=== PATIENT | male | born 1960 | race Caucasian/White ===

== ENCOUNTER 2022-03-20 19:03 | Inpatient (IN) | payer OTHER ==
[~2022-03-20] VITALS: Ht 172.7 cm; Wt 83.9 kg
--- NOTE | 2022-03-20 19:07 | NUR ---
BIBA RA39 From Home"progressively getting weak last couple days/SOB/swellinG. PLACED ON BED, AAOX4, BREATHING EVEN AND UNLABORED SATURATING AT 98%, COMPLAINS OF EXCRUCIATING BACK PAIN 10/10 PS.
[2022-03-20] MEDS ORDERED: IV NS 0.9% 500 ML IV ONE (19:30)
[2022-03-20] MEDS ORDERED: ALBUTEROL FS 2.5 MG/3 ML VIAL.NEB NEB ONE (19:30)
[2022-03-20] MEDS ORDERED: IPRATROPIUM NEB FS 0.5 MG/2.5 ML AMPUL.NEB NEB ONE (19:30)
[2022-03-20] MEDS ORDERED: methylPREDNISolone SOD SUCC 125 MG/2ML VIAL IV ONE (19:30)
[2022-03-20] MEDS ORDERED: methylPREDNISolone SOD SUCC 125 MG/2ML VIAL ONE (19:33)
--- NOTE | 2022-03-20 19:35 | NUR ---
HANDMADE TILE ARTIST AT PT'S BEDSIDE
--- NOTE | 2022-03-20 19:45 | NUR ---
FACILITY SUPERVISOR AT PT'S BEDSIDE
[2022-03-20] MEDS ORDERED: IPRATROPIUM NEB FS 0.5 MG/2.5 ML AMPUL.NEB ONE (20:04)
[2022-03-20] MEDS ORDERED: ALBUTEROL FS 2.5 MG/3 ML VIAL.NEB ONE (20:04)
[2022-03-20 20:06] LABS: CALCIUM, SERUM 8.7 mg/dL (8.5-10.1); CARBON DIOXIDE 26 mmol/L (21-32); CHLORIDE 107 mmol/L (98-107); GLUCOSE 100 mg/dL (74-106); SODIUM SERUM 141 mmol/L (136-145); UREA NITROGEN, BLOOD 35 mg/dL (7-18)
[2022-03-20 20:07] LABS: BASOPHILS % (AUTO) 0.3 % (0.0-2.0); EOSINOPHILS % (AUTO) 0.3 % (0.0-6.0); HEMATOCRIT 30 % (39-51); HEMOGLOBIN 10.4 g/dL (13.5-17.5); LYMPHOCYTES # (AUTO) 1.5 K/uL (0.8-4.8); LYMPHOCYTES % (AUTO) 17.9 % (20.0-44.0); MEAN CORPUSCULAR HGB CONC 34 g/dl (31.0-36.0); MEAN CORPUSCULAR VOLUME 102 fL (80-96); MONOCYTES # (AUTO) 0.8 K/uL (0.1-1.30); MONOCYTES % (AUTO) 9.7 % (2.0-12.0); NEUTROPHILS # (AUTO) 5.9 K/uL (1.8-8.9); NEUTROPHILS % (AUTO) 71.8 % (43.0-81.0); PLATELET COUNT (AUTO) 163 K/uL (150-450); RED BLOOD CELL COUNT(AUTO) 2.97 MIL/uL (4.5-6.0); WHITE BLOOD COUNT (AUTO) 8.3 K/uL (4.3-11.0)
--- NOTE | 2022-03-20 20:15 | NUR ---
RT AT PT'S BEDSIDE FOR BREATHING TX
--- NOTE | 2022-03-20 20:16 | NUR ---
CRITICAL LAB: [facility] [address] JORDAN AWARE
[2022-03-20 20:20] LABS: ALANINE AMINOTRANSFERASE 29 U/L (12-78); ALBUMIN 2.4 g/dL (3.4-5.0); ALKALINE PHOSPHATASE 83 U/L (46-116); ASPARTATE AMINOTRANSFERASE 44 U/L (15-37); BILIRUBIN,DIRECT 0.6 mg/dL (0.0-0.2); BILIRUBIN,TOTAL 1.6 mg/dL (0.2-1.0)
--- NOTE | 2022-03-20 20:22 | NUR ---
UPDATED JUDY COSME
[2022-03-20] MEDS ORDERED: IOHEXOL-350 100 ML VIAL IV ONE (20:23)
[2022-03-20] MEDS ORDERED: IV NS 0.9% 250 ML IV ONE (20:23)
[2022-03-20] MEDS ORDERED: CT SWABBABLE VALVE TRANS SET 1 EA INFUS.SET MC ONE (20:23)
[2022-03-20] MEDS ORDERED: MORPHINE SULFATE INJ 4 MG/ML DISP.SYRIN ONE (20:24)
[2022-03-20] MEDS ORDERED: ENOXAPARIN SODIUM 80 MG/0.8 ML DISP.SYRIN SQ ONE ×2 (20:29→20:30)
[2022-03-20] MEDS ORDERED: MORPHINE SULFATE INJ 2 MG/ML DISP.SYRIN IV ONE (20:30)
--- NOTE | 2022-03-20 20:31 | NUR ---
RT neb tx discontinued midway due to pt complaint of dizziness. pt assessed and monitored. sat 99%. hr 122 but pt stated he was ok. pt stable. notified dr interiano.
--- NOTE | 2022-03-20 20:39 | NUR ---
COVID SWAB DONE AND SENT TO LAB
[2022-03-20 21:36] LABS: LYMPHOCYTES % (MANUAL) 12 % (16-48); MONOCYTES % (MANUAL) 15 % (0-11.0); NEUTROPHILS % (MANUAL) 73 (42-76)
--- NOTE | 2022-03-20 21:36 | NUR ---
SEEN BY EMETERIO GUDINO AT BEDSIDE
[2022-03-20] MEDS ORDERED: ONDANSETRON HCL/PF 4 MG/2 ML VIAL IVP PRN (22:30)
[2022-03-20] MEDS ORDERED: MAG HYDROX/AL HYDROX/SIMETH 30 ML UDC PO PRN (22:30)
[2022-03-20] MEDS ORDERED: HYDROCODONE/APAP 5/325MG TABLET PO PRN (22:30)
[2022-03-20] MEDS ORDERED: IV NS 0.9% 1,000 ML IV PRN (22:30)
[2022-03-20] MEDS ORDERED: ACETAMINOPHEN 325 MG TABLET PO PRN (22:30)
[2022-03-20] MEDS ORDERED: ENOXAPARIN SODIUM 40 MG/0.4 ML DISP.SYRIN SQ SCH (22:30)
[2022-03-20] MEDS ORDERED: Z GUARD REMEDY 4 OZ OINT TP PRN (22:30)
[2022-03-20] MEDS ORDERED: MAGNESIUM HYDROXIDE 30 ML UDC PO PRN (22:30)
--- NOTE | 2022-03-20 22:46 | NUR ---
TELE 320-1
[2022-03-20] MEDS ORDERED: ALBUTEROL FS 2.5 MG/3 ML VIAL.NEB NEB PRN (23:00)
--- NOTE | 2022-03-20 23:07 | NUR ---
REPORT GIVEN TO [facility] ROOM 320-1 FOR JOSUE
--- NOTE | 2022-03-20 23:35 | NUR ---
RN NOTES 9392 ADMITTED A 62 Y/O MALE TO THE UNIT VIA GURNEY ACCOMPANIED BY Narinder NURSE, JULITO GARCIA WITH DX OF NSTEMI. PATIENT IS ALERT AND ORIENTED X4, PT ORIENTED TO STAFF AND UNIT. V/S TAKEN AND RECORDED. PT ON ROOM AIR, TOLERATING WELL WITH SPO2 AT 96%. NOTED PT WITH DISTENDED ABDOMEN, PT DENIES PAIN OR DISCOMFORT AT THIS TIME. SKIN IS INTACT, DRY, AND WARM. PT REFUSED TO WEAR HOSPITAL GOWN BUT PHOTOGRAPHS TAKEN FOR SKIN ISSUES. IV ACCESS AT RAC AND LAC #20G INTACT AND PATENT. SAFETY MEASURES INITIATED: BED IN LOWEST AND LOCKED POSITION, SIDE RAILS UP X2, AND CALL LIGHT WITHIN REACH AND INSTRUCTED TO CALL FOR ASSISTANCE. WILL CONTINUE TO MONITOR PT THROUGHOUT THE SHIFT.
[2022-03-21] VITALS (28 sets, daily range): BP systolic 100–150; BP diastolic 34–95
--- NOTE | 2022-03-21 02:49 | NUR ---
RN NOTE RECEIVED CRITICAL LAB OF [facility] 1011, INFORMED ALEX CONCESSION CASHIER, ADVISED TO GIVE MORPHINE IV IF PATIENT IS IN PAIN OTHERWISE PT HAS LOVENOX MEDS A ROUTINE DOSE Q12H. LAST DOSE GIVEN AT 2030 AT ER. CN MADE AWARE. WILL CONT TO MONITOR.
--- NOTE | 2022-03-21 03:02 | NUR ---
RN NOTE MORPHINE IV GIVEN PRN MEDS FOR PAIN LOCATED AT THE LOWER BACK WITH 8/10 IN PAIN SCALE. WILL CONT TO MONITOR.
[2022-03-21] MEDS: MORPHINE SULFATE INJ 2 MG/ML DISP.SYRIN IV PRN ×2 (03:03→20:41)
[2022-03-21] MEDS: methylPREDNISolone SOD SUCC 40 MG/ML VIAL IV SCH ×3 (04:27→21:26)
[2022-03-21 06:19] LABS: BASOPHILS % (AUTO) 0.1 % (0.0-2.0); HEMATOCRIT 24 % (39-51); HEMOGLOBIN 8.1 g/dL (13.5-17.5); LYMPHOCYTES # (AUTO) 0.8 K/uL (0.8-4.8); MEAN CORPUSCULAR HGB CONC 34 g/dl (31.0-36.0); MEAN CORPUSCULAR VOLUME 103 fL (80-96); MONOCYTES # (AUTO) 0.2 K/uL (0.1-1.30); MONOCYTES % (AUTO) 2.7 % (2.0-12.0); NEUTROPHILS # (AUTO) 4.7 K/uL (1.8-8.9); NEUTROPHILS % (AUTO) 83.2 % (43.0-81.0); PLATELET COUNT (AUTO) 136 K/uL (150-450); RED BLOOD CELL COUNT(AUTO) 2.29 MIL/uL (4.5-6.0); WHITE BLOOD COUNT (AUTO) 5.7 K/uL (4.3-11.0)
--- NOTE | 2022-03-21 06:41 | NUR ---
MERCHANDISE EXECUTION LEADER CLOSING NOTES PATIENT SLEEPING IN BED BUT EASILY AROUSABLE TO TOUCH AND VOICE, ALERT AND ORIENTED X4, PT ON O2 VIA NC AT 2LPM TOLERATING WELL WITH SPO2 AT 98%. NO COMPLAINTS OF PAIN OR DISCOMFORT AT THIS TIME. ON TELEMONITORING CURRENTLY READING ST AT 106 BPM, IV ACCESS AT RAC AND LAC #20G INTACT AND PATENT RUNNING NS AT 75 ML/HR. ALL DUE MEDS GIVEN, KEPT DRY AND CLEAN, SAFETY MEASURES INITIATED: BED IN LOWEST AND LOCKED POSITION, SIDE RAILS UP X2, CALL LIGHT WITHIN REACH AND INSTRUCTED TO CALL FOR ASSISTANCE. WILL ENDORSE TO AM SHIFT NURSE FOR CONTINUITY OF CARE
[2022-03-21 07:15] LABS: CALCIUM, SERUM 8.3 mg/dL (8.5-10.1); MAGNESIUM 1.9 mg/dL (1.8-2.4); PHOSPHORUS 3.2 mg/dL (2.5-4.9)
--- NOTE | 2022-03-21 07:15 | NUR ---
RN NOTE CRITICAL LAB OF [facility] 1148. RELAYED TO AM SHIFT NURSE LUNA.
[2022-03-21 07:47] LABS: THYROID STIMULATING HORMONE 0.724 uIU/mL (0.358-3.74)
[2022-03-21] MEDS ORDERED: PROP10TA68 PO (08:57)
[2022-03-21] MEDS ORDERED: FURO20TA4 PO (08:57)
[2022-03-21] MEDS ORDERED: SPIR50TA5 PO (08:57)
[2022-03-21] MEDS ORDERED: PANT40TA49 PO (08:57)
[2022-03-21] MEDS ORDERED: ENOXAPARIN SODIUM 80 MG/0.8 ML DISP.SYRIN SQ SCH (09:00)
[2022-03-21] MEDS ORDERED: PANTOPRAZOLE 40 MG VIAL IV SCH (09:00)
--- NOTE | 2022-03-21 10:00 | NUR ---
RN NOTES GET PATIENT TRANSFERRED FROM MED/SURG UNIT TO THE ICU ROOM 253 62 Y/OLD MALE ON Dx OF NSTEMI, ABDOMINAL PAIN. PATIENT A/O X3, NC @3L, BEDSIDE MONITOR SHOWS HT- 116, O2-100%, , BP-118/58, WAS COMPLAINING OF DRYNESS OF MOUTH, AND MID ABDOMINAL PAIN DURING PALPATION. PATIENT NPO, IV ACCESS ON LEFT AND RIGHT AC AREA INTACT, STARTED NS@125ML/HR. EDEMA BLE,. CALL LIGHT WITHIN TO REACH. WILL FOLLOW UP.
[2022-03-21] MEDS: IV NS 0.9% 1,000 ML IV PRN ×2 (10:08→18:19)
--- NOTE | 2022-03-21 10:44 | NUR ---
PARLIAMENTARY ARCHIVIST NOTE PATIENT JOSUE. TRANSFERRED TO ICU, BED 253 @ 1000. VS 116 98.9 94% ON 3L OXYGEN AT TIME OF TRANSFER. REPORT GIVEN AT BEDSIDE TO RECEIVING NURSE. Addendum: 03/21/22 at 1053 by LUNA SHELBY RN PARLIAMENTARY ARCHIVIST NOTE PATIENT JOSUE. TRANSFERRED TO ICU, BED 253 @ 1000. VS 116 98.9 94% ON 3L OXYGEN AT TIME OF TRANSFER. REPORT GIVEN AT BEDSIDE TO RECEIVING NURSE. PATIENT SON NOTIFIED OF TRANSFER.
--- NOTE | 2022-03-21 10:53 | NUR ---
WHEEL BORER NOTE PATIENT JOSUE. TRANSFERRED TO [facility], ROOM 113-1 @ 1030. VS 107/40 70 97.4 89-90% ON 10L OXYGEN AT TIME OF TRANSFER. REPORT GIVEN AT BEDSIDE TO RECEIVING NURSE. PATIENT SON, EDGARD, ALSO MADE AWARE OF TRANSFER.
--- NOTE | 2022-03-21 11:00 | NUR ---
RN NOTES KUB OF X-RAY DONE. INSERTED STONE CATHETER, PATIENT UNABLE TO URINATE OUTPUT WAS 350 ML. BP 104/64, P-108, O2-100% WITH NC OF 3L. PATIENT STABLE AT THIS TIME. WAS COMPLAINING OF PAIN MID ABDOMEN DURING PALPATION. SEEN HOSPITALIST VIA MUD MILL TENDER ESTRADA FUNK, CANTEEN MANAGER AT BEDSIDE. CALL LIGHT WITHIN TO REACH. BED ALARM ON. WILL FOLLOW UP
--- NOTE | 2022-03-21 13:30 | NUR ---
rn notes seen patient via surgeon Dr Benoit, no new order at this time will continued monitoring.
--- NOTE | 2022-03-21 14:02 | NUR ---
rn notes patients family next to the bed. patient refused abdominal pain at this time, due medication administered.
--- NOTE | 2022-03-21 14:42 | NUR ---
rn notes patient has bloody bowel movement, delusional, calling her mother, also complaining of lower back pain, turning side to side in the often, labelling machine operator in the bed for lactic acid blood .
[2022-03-21] MEDS ORDERED: PIPERACILLIN /TAZOBACTAM 3.375 G in IV D5W 50 ML IV SCH (18:00)
--- NOTE | 2022-03-21 18:30 | NUR ---
RN NOTES PATIENT CONFUSED, NO ACUTE RESPIRATORY DISTRESS, BILATERAL WRIST RESTRAIN INTACT, PATIENT TRYING GET OUT OF BED, INFUSING NS@125 ML/HR INTACT ON RAC AREA. STONE DRAINING 800ML OF YELLOW OUTPUT. DUE MEDICATION ADMINISTERED. CALL LIGHT WITHIN TO REACH. ENDORSED ONCOMING NURSE FOLLOW JOSUE.
[2022-03-21] MEDS ORDERED: OCTREOTIDE 50 MCG/ML AMPUL IV ONE (19:00)
[2022-03-21] MEDS ORDERED: OCTREOTIDE 1,250 MCG in IV NS 0.9% 247.5 ML IV PRN (19:00)
[2022-03-21] MEDS: PANTOPRAZOLE 40 MG VIAL IV SCH (19:07)
--- NOTE | 2022-03-21 19:30 | NUR ---
RN OPENING NOTED RECEIVED PT IN BED, AWAKE. PT IS A LITTLE AGITATED AND CONFUSED, OFTEN TIMES TRYING TO GET UP FROM BED. PT CURRENTLY ON O2 VIA NC @ 3L, TOLERATING WELL. NO S/SX OF [place] RESPI DISTRESS NOTED AT THIS TIME. NO SOB, NO PAIN. O2 SAT @ >95%. ST ON TELE MONITOR. IV ACCESS NOTED ON LEFT AND RIGHT AC, BOTH #18g. LAC RUNNING NS @ 125 CC/HR. SOFT WRIST RESTRAINTS NOTED ON BILATERAL HANDS. NO CIRCULATION ISSUES SO FAR. STONE CATH IN PLACE, DRAINING YELLOW URINE BY GRAVITY. ALL SAFETY MEASURES BEING IMPLEMENTED: BED LOCKED IN LOW POSITION, BED ALARM ON. SR UP X 3, CALL LIGHT WITHIN REACH. WILL CONTINUE TO MONITOR T/O THE NIGHT.
[2022-03-21] MEDS: OCTREOTIDE 500 MCG in IV NS 0.9% 99 ML IV PRN (20:27)
--- NOTE | 2022-03-21 20:46 | NUR ---
RN NOTE PT IS RESTLESS AND COMPLAINING OF PAIN IN HIS ABDOMINAL AREA. PT IN NO ACUTE RESPI DISTRESS UPON ASSESSMENT. ADMINISTERED MORPHINE IV ORDERED. WILL CONTINUE TO MONITOR.
[2022-03-21] MEDS: PIPERACILLIN /TAZOBACTAM 3.375 G in IV D5W 100 ML IV SCH (21:25)
--- NOTE | 2022-03-21 23:30 | NUR ---
RN NOTE FECAL SAMPLE OBTAINED AT 23:15 FOR OCCULT BLOOD TEST. INFORMED LAB TO [employer].
[2022-03-22] VITALS (20 sets, daily range): BP systolic 115–147; BP diastolic 42–101
[2022-03-22] MEDS: IV NS 0.9% 1,000 ML IV PRN ×2 (02:46→11:06)
[2022-03-22] MEDS: methylPREDNISolone SOD SUCC 40 MG/ML VIAL IV SCH ×3 (04:43→21:40)
[2022-03-22] MEDS: PIPERACILLIN /TAZOBACTAM 3.375 G in IV D5W 100 ML IV SCH ×3 (04:43→21:41)
[2022-03-22 05:01] LABS: HEMATOCRIT 24 % (39-51); LYMPHOCYTES # (AUTO) 0.7 K/uL (0.8-4.8); LYMPHOCYTES % (AUTO) 6.7 % (20.0-44.0); MEAN CORPUSCULAR HGB CONC 34 g/dl (31.0-36.0); MEAN CORPUSCULAR VOLUME 105 fL (80-96); MONOCYTES # (AUTO) 0.6 K/uL (0.1-1.30); MONOCYTES % (AUTO) 5.6 % (2.0-12.0); NEUTROPHILS # (AUTO) 9.1 K/uL (1.8-8.9); NEUTROPHILS % (AUTO) 87.7 % (43.0-81.0); PLATELET COUNT (AUTO) 145 K/uL (150-450); RED BLOOD CELL COUNT(AUTO) 2.26 MIL/uL (4.5-6.0); WHITE BLOOD COUNT (AUTO) 10.4 K/uL (4.3-11.0)
[2022-03-22 05:29] LABS: ALBUMIN 2.4 g/dL (3.4-5.0); BILIRUBIN,TOTAL 1.3 mg/dL (0.2-1.0); CALCIUM, SERUM 8.2 mg/dL (8.5-10.1); MAGNESIUM 2.3 mg/dL (1.8-2.4); PHOSPHORUS 4.7 mg/dL (2.5-4.9); POTASSIUM 4.2 mmol/L (3.5-5.1); TOTAL PROTEIN, SERUM 5.5 g/dL (6.4-8.2)
[2022-03-22 05:55] LABS: OCCULT BLOOD STOOL POSITIVE (NEGATIVE)
--- NOTE | 2022-03-22 07:10 | NUR ---
OYSTER CULTIVATOR OPENING NOTE: RECEIVED PT. IN BED, AWAKE, AOX1, TO SELF ONLY. DANISH SPEAKING BUT ABLE TO UNDERSTAND AND SPEAK SIMPLE SUDANESE. NO COMPLAINTS OF PAIN/DISCOMFORT AT THIS TIME. SANITARY PLUMBER READS NSR. ON STONE CATH WITH CLEAR YELLOW URINE DRAINING VIA GRAVITY. PT. ON BILATERAL SOFT WRIST RESTRAINTS, PALPABLE PULSES AND CAP REFILL < 3 SECS NOTED ON ALL EXTREMITIES. SITTER AT BEDSIDE WELL PT. REMAINS CONFUSED AND TRYING TO GET OUT OF BED AND PULL LINES. EDEMA NOTED ON BILATERAL FOOT, NON-PITTING. IV ACCESS ON RIGHT AC #18G, PATENT AND SALINE LOCKED; LEFT AC #20G WITH NS RUNNING AT 125 ML/HR AND SANDOSTATIN AT 25MCG/HR. IV DRESSINGS C/D/I WITH NO S/S OF INFILTRATION. SAFETY MEASURES IN PLACE: BED IN LOWEST AND LOCKED POSITION, HOB ELEVATED AT 30 DEGREES, BED ALARM ON, CALL LIGHT WITHIN EASY REACH. WILL ENCOURAGE FREQUENT REPOSITIONING IN BED AT LEAST Q2H. WILL CONTINUE TO MONITOR PT. FOR ANY CHANGES.
[2022-03-22] MEDS ORDERED: LACTULOSE 10 G/15 ML UDC (PYXIS) PO PRN (08:30)
[2022-03-22] MEDS: PANTOPRAZOLE 40 MG VIAL IV SCH ×2 (09:09→17:30)
[2022-03-22] MEDS: OCTREOTIDE 500 MCG in IV NS 0.9% 99 ML IV PRN (09:09)
[2022-03-22] MEDS: LACTULOSE 10 G/15 ML UDC (PYXIS) PO SCH ×3 (09:14→21:40)
[2022-03-22] MEDS: IV D5W 1,000 ML IV PRN (12:33)
[2022-03-22] MEDS: MORPHINE SULFATE INJ 2 MG/ML DISP.SYRIN IV PRN (12:36)
--- NOTE | 2022-03-22 13:36 | NUR ---
INSTRUCTOR OF SPANISH NOTE: PT. COMPLAINED OF OF 8/10 SHARP ABDOMINAL PAIN AT 1230. MORPHINE 4MG IV GIVEN. PT. NOW VERBALIZED PAIN RELIEF OF 0/10. WILL CONTINUE TO MONITOR PT.'S PAIN.
[2022-03-22] MEDS: METOCLOPRAMIDE HCL 10 MG/2 ML VIAL IV SCH ×2 (14:45→21:40)
[2022-03-22] MEDS ORDERED: DIATR MEGLU/DIATRIZOATE SODIUM 120 ML BOTTLE (GASTROGRAPHIN) ONE (15:05)
--- NOTE | 2022-03-22 15:15 | NUR ---
INDUCTION MACHINE SETTER NOTE: PT. REFUSED TO TAKE ORAL SOLUTION FOR SMALL BOWEL FOLLOW THROUGH. HOSPITALIST NOTIFIED.
[2022-03-22] MEDS ORDERED: IV NS 0.9% 1,000 ML IV PRN (16:30)
[2022-03-22 17:01] LABS: BASOPHILS % (AUTO) 0.1 % (0.0-2.0); HEMATOCRIT 21 % (39-51); HEMOGLOBIN 7.3 g/dL (13.5-17.5); LYMPHOCYTES # (AUTO) 0.6 K/uL (0.8-4.8); MEAN CORPUSCULAR HGB CONC 34 g/dl (31.0-36.0); MEAN CORPUSCULAR VOLUME 104 fL (80-96); MONOCYTES # (AUTO) 0.4 K/uL (0.1-1.30); MONOCYTES % (AUTO) 4.7 % (2.0-12.0); NEUTROPHILS # (AUTO) 8.4 K/uL (1.8-8.9); NEUTROPHILS % (AUTO) 89.2 % (43.0-81.0); PLATELET COUNT (AUTO) 130 K/uL (150-450); RED BLOOD CELL COUNT(AUTO) 2.05 MIL/uL (4.5-6.0); WHITE BLOOD COUNT (AUTO) 9.4 K/uL (4.3-11.0)
[2022-03-22 17:22] LABS: ALBUMIN 2.2 g/dL (3.4-5.0); BILIRUBIN,TOTAL 1.1 mg/dL (0.2-1.0); CALCIUM, SERUM 7.8 mg/dL (8.5-10.1); MAGNESIUM 2.4 mg/dL (1.8-2.4); PHOSPHORUS 4.4 mg/dL (2.5-4.9); POTASSIUM 3.8 mmol/L (3.5-5.1); TOTAL PROTEIN, SERUM 5.3 g/dL (6.4-8.2)
[2022-03-22 17:34] LABS: LYMPHOCYTES % (MANUAL) 6 % (16-48); MONOCYTES % (MANUAL) 5 % (0-11.0); NEUTROPHILS % (MANUAL) 89 (42-76)
--- NOTE | 2022-03-22 18:45 | NUR ---
FOUNDER / CEOGAS FURNACE INSTALLER NOTE: TRANSFERRED PT. TO TELE ROOM 114-2 VIA HOSPITAL BED. REPORT GIVEN AT BEDSIDE TO SHAFT REPAIRERKATALINA. PT. REMAINS IN BED, AWAKE, AOX1, TO SELF ONLY. LITHUANIAN SPEAKING BUT ABLE TO UNDERSTAND AND SPEAK SIMPLE LITHUANIAN. NO COMPLAINTS OF PAIN/DISCOMFORT AT THIS TIME. GIVEN MORPHINE 4MG IV ONCE AT 1236. TOOL ROOM LATHE OPERATOR READS NSR/ST 80-106 BPM. ON STONE CATH WITH CLEAR YELLOW URINE OUTPUT OF 1900 ML THIS SHIFT. PT. ON BILATERAL SOFT WRIST RESTRAINTS, PALPABLE PULSES AND CAP REFILL < 3 SECS NOTED ON ALL EXTREMITIES. 1:1 SITTER AT BEDSIDE. IV ACCESS ON RIGHT AC #18G, PATENT AND SALINE LOCKED; LEFT AC #20G, PATENT AND SALINE LOCKED; JENNIFER MIDLINE #18G WITH D5W RUNNING AT 75 ML/HR AND SANDOSTATIN AT 25MCG/HR. IV DRESSINGS C/D/I WITH NO S/S OF INFILTRATION. SAFETY MEASURES MAINTAINED: BED IN LOWEST AND LOCKED POSITION, HOB ELEVATED AT 30 DEGREES, BED ALARM ON, CALL LIGHT WITHIN EASY REACH. ENCOURAGED FREQUENT REPOSITIONING IN BED AT LEAST Q2H. PT. MEDS, CHART, BELONGINGS HANDED OVER TO SHAFT REPAIRER AT BEDSIDE. ENDORSED CONTINUITY OF CARE.
--- NOTE | 2022-03-22 18:46 | NUR ---
DISTRIBUTOR CLEANERFRONT WORKER NOTE: PT. IS NOW ON ROOM AIR, SATURATING WELL AT 94-98%. NO S/S OF RESPIRATORY DISTRESS.
--- NOTE | 2022-03-22 18:50 | NUR ---
RN NOTE RECEIVED PATIENT FROM ICU TRANSPORTED VIA BED ACCOMPANIED BY RN ZAK AND WILBUR GILBERT. PATIENT IS AWAKE, A/O X1, VERBALLY RESPONSIVE WITH CONFUSION AND DISORIENTATION. PT ON ROOM AIR, NO SOB NOTED, BREATHING EVEN AND UNLABORED, SATURATING AT 95%. NOTED WITH IV ACCESS ON RIGHT AC #18G, SL AND LEFT UPPER MIDLINE #18G RUNNING D5W @75ML/HR AND SANDOSTATIN @5CC/HR. PLACED PATIENT ON TELE MONITOR CURRENTLY SHOWING ST, HR @ 105. VITAL SIGNS FF: 109/59, 105, 20, 98.3. DENIES ANY PAIN AT THIS TIME. SAFETY MEASURE IN PLACE. BED IN LOWEST AND LOCKED POSITION, SIDE RAILS UP X3, CALL LIGHT PLACED WITHIN EASY REACH. WILL ENDORSE TO NEXT SHIFT FOR JOSUE.
--- NOTE | 2022-03-22 20:22 | NUR ---
INSPECTOR FINAL ASSEMBLY ELECTRICAL OPENING NOTE PATIENT AWAKE IN BED, ALERT/ORIENTED X 1, PT CONFUSED. PT STABLE ON RA, NO S/S OF DISTRESS OR SOB NOTED, BREATHING EVEN AND UNLABORED. PATIENT ON EXTERNAL ASSOCIATE PROFESSOR OF ARCHAEOLOGY READING SINUS TACH, HR: 108. IV ACCESS ON JENNIFER MIDLINE & RAC #18G BOTH INTACT AND INFUSING D5W @ 75 ML/HR AND SANDOSTATIN @ 5 ML/HR (25 MCG/HR). PATIENT WITH BILATERAL SOFT WRIST RESTRAINTS ON, RELEASED AND PATIENT REPOSITIONED, FLUIDS PROVIDED AND RESTRAINTS PLACED BACK ON. STONE CATHETER NOTED DRAINING YELLOW URINE BY GRAVITY. SAFETY MEASURES IN PLACE: CALL LIGHT WITHIN REACH, SIDE RAILS UP X 3, BED LOCKED IN LOWEST POSITION, BED ALARM ON. WILL CONTINUE TO MONITOR PATIENT
[2022-03-22 20:58] LABS: BILIRUBIN,URINE NEGATIVE (NEGATIVE); COLOR,URINE YELLOW (YELLOW); LEUKOCYTE ESTERASE ,URINE NEGATIVE (NEGATIVE); NITRITE, URINE NEGATIVE (NEGATIVE); PROTEIN,URINE NEGATIVE (NEGATIVE); UGLUCOSE NEGATIVE (NEGATIVE)
[2022-03-22 21:05] LABS: BACTERIA,URINE None seen /HPF (None Seen); RBC,URINE 51-80 /HPF (0-2); SQUAMOUS EPITHELIAL CELL,UR 0-2 /HPF (None Seen); WBC,URINE 0-2 /HPF (0-3)
[2022-03-22 21:06] LABS: URINE AMORPHOUS URATE Moderate /HPF (None Seen)
--- NOTE | 2022-03-22 22:29 | NUR ---
FRONT WINDOW CASHIER NOTE PATIENT STATED HE CAN'T BREATHE, SPO2: 91-92%. PLACED PATIENT ON 2 LPM OF OXYGEN VIA NASAL CANNULA, WILL CONTINUE TO MONITOR
[2022-03-23] VITALS: BP 144/86
[2022-03-23] MEDS: METOCLOPRAMIDE HCL 10 MG/2 ML VIAL IV SCH ×4 (03:38→20:52)
[2022-03-23] MEDS: LACTULOSE 10 G/15 ML UDC (PYXIS) PO SCH ×4 (03:39→20:52)
[2022-03-23 04:00] VITALS: BP 138/75
[2022-03-23] MEDS: PIPERACILLIN /TAZOBACTAM 3.375 G in IV D5W 100 ML IV SCH ×3 (05:07→20:53)
[2022-03-23] MEDS: methylPREDNISolone SOD SUCC 40 MG/ML VIAL IV SCH ×3 (05:07→20:52)
[2022-03-23] MEDS: IV D5W 1,000 ML IV PRN (05:08)
[2022-03-23] MEDS: OCTREOTIDE 500 MCG in IV NS 0.9% 99 ML IV PRN (05:08)
[2022-03-23 06:03] LABS: HEMATOCRIT 22 % (39-51); HEMOGLOBIN 7.4 g/dL (13.5-17.5); LYMPHOCYTES # (AUTO) 0.7 K/uL (0.8-4.8); LYMPHOCYTES % (AUTO) 7.5 % (20.0-44.0); MEAN CORPUSCULAR HGB CONC 34 g/dl (31.0-36.0); MEAN CORPUSCULAR VOLUME 104 fL (80-96); MONOCYTES # (AUTO) 0.6 K/uL (0.1-1.30); MONOCYTES % (AUTO) 5.8 % (2.0-12.0); NEUTROPHILS # (AUTO) 8.4 K/uL (1.8-8.9); NEUTROPHILS % (AUTO) 86.7 % (43.0-81.0); PLATELET COUNT (AUTO) 127 K/uL (150-450); RED BLOOD CELL COUNT(AUTO) 2.08 MIL/uL (4.5-6.0); WHITE BLOOD COUNT (AUTO) 9.7 K/uL (4.3-11.0)
--- NOTE | 2022-03-23 06:40 | NUR ---
URBAN GARDENING SPECIALIST CLOSING NOTE PATIENT SLEEPING IN BED, ALERT/ORIENTED X 1-2. PT STABLE ON 2 LPM OF O2 VIA NASAL CANNULA, NO S/S OF DISTRESS OR SOB NOTED, BREATHING EVEN AND UNLABORED. PATIENT ON EXTERNAL VISION CARE ASSOCIATE READING SINUS RHYTHM, HR: 99. IV ACCESS ON JENNIFER MIDLINE & RAC #18G BOTH INTACT AND INFUSING ZOSYN @ 25 ML/HR AND SANDOSTATIN @ 5 ML/HR (25 MCG/HR). PATIENT WITH BILATERAL SOFT WRIST RESTRAINTS ON AND SITTER AT BEDSIDE. STONE CATHETER IN PLACE WITH 900 ML OUTPUT, NO BM THIS SHIFT. MEDICATIONS GIVEN ORDERED, PT NEEDS MET THROUGHOUT SHIFT. SAFETY MEASURES IN PLACE: CALL LIGHT WITHIN REACH, SIDE RAILS UP X 3, BED LOCKED IN LOWEST POSITION, BED ALARM ON. WILL ENDORSE TO DAYSHIFT NURSE FOR CONTINUITY OF CARE
[2022-03-23 08:00] VITALS: BP 138/75
--- NOTE | 2022-03-23 08:02 | NUR ---
RN OPENING NOTE PATIENT RECEIVED IN BED, AO X 1-2, BHUTANESE SPEAKING, ABLE TO RESPONDS ALL STIMULI. IN NO ACUTE DISTRESS NOTED. RESPIRATORY EVEN AND UNLABORED ON OXYGEN AT 2Ls VIA NC. SKIN IS WARM TO TOUCH, KEEP CLEAN/DRY. KEPT ELEVATED HOB FOR ENSURE AIRWAY AND ASPIRATION PRECAUTION, ALSO LOWEST POSITION OF THE BED, S/R UP X 3, BED ALARM IS ON AT ALL THE TIMES. ALL SAFETY PRECAUTION APPLIED. CALL LIGHT WITHIN REACH, WILL CONTINUE TO MONITOR.
[2022-03-23 08:21] LABS: ALBUMIN 2.4 g/dL (3.4-5.0); BILIRUBIN,TOTAL 1.2 mg/dL (0.2-1.0); CALCIUM, SERUM 7.8 mg/dL (8.5-10.1); MAGNESIUM 2.5 mg/dL (1.8-2.4); TOTAL PROTEIN, SERUM 5.3 g/dL (6.4-8.2)
[2022-03-23 08:55] LABS: PHOSPHORUS 4.4 mg/dL (2.5-4.9)
[2022-03-23] MEDS: PANTOPRAZOLE 40 MG VIAL IV SCH ×2 (09:33→17:19)
[2022-03-23 10:36] LABS: BILIRUBIN,DIRECT 0.6 mg/dL (0.0-0.2)
[2022-03-23 12:00] VITALS: BP 119/74
[2022-03-23 16:00] VITALS: BP 125/64
--- NOTE | 2022-03-23 18:00 | NUR ---
RN CLOSING NOTE PATIENT IN BED RESTING. IN NO ACUTE DISTRESS NOTED. RESPIRATORY EVEN AND UNLABORED ON OXYGEN AT 1L VIA NC. SKIN IS WARM TO TOUCH, KEEP CLEAN/DRY. KEPT ELEVATED HOB FOR ENSURE AIRWAY AND ASPIRATION PRECAUTION. BED IN LOWEST POSITION AND LOCKED. BED ALARM IS ON AT ALL THE TIMES. ALL SAFETY MEASURED IN PLACED. CALL LIGHT WITHIN REACH, WILL ENDORSED TO NEXT SHIFT
[2022-03-23 20:00] VITALS: BP 143/70
[2022-03-24] VITALS (13 sets, daily range): BP systolic 98–144; BP diastolic 54–83
[2022-03-24] MEDS: OCTREOTIDE 500 MCG in IV NS 0.9% 99 ML IV PRN ×2 (01:46→19:20)
[2022-03-24] MEDS: METOCLOPRAMIDE HCL 10 MG/2 ML VIAL IV SCH ×4 (02:53→20:26)
[2022-03-24] MEDS: LACTULOSE 10 G/15 ML UDC (PYXIS) PO SCH ×4 (02:53→20:31)
[2022-03-24] MEDS: PIPERACILLIN /TAZOBACTAM 3.375 G in IV D5W 100 ML IV SCH ×3 (04:49→20:26)
[2022-03-24] MEDS: methylPREDNISolone SOD SUCC 40 MG/ML VIAL IV SCH ×3 (04:49→20:26)
[2022-03-24 06:23] LABS: HEMOGLOBIN 7.1 g/dL (13.5-17.5); LYMPHOCYTES # (AUTO) 0.6 K/uL (0.8-4.8); LYMPHOCYTES % (AUTO) 9.4 % (20.0-44.0); MEAN CORPUSCULAR HGB CONC 35 g/dl (31.0-36.0); MEAN CORPUSCULAR VOLUME 103 fL (80-96); MONOCYTES # (AUTO) 0.6 K/uL (0.1-1.30); MONOCYTES % (AUTO) 9.3 % (2.0-12.0); NEUTROPHILS # (AUTO) 4.8 K/uL (1.8-8.9); NEUTROPHILS % (AUTO) 81.3 % (43.0-81.0); PLATELET COUNT (AUTO) 107 K/uL (150-450); WHITE BLOOD COUNT (AUTO) 5.9 K/uL (4.3-11.0)
[2022-03-24 06:47] LABS: SERUM AMMONIA 18 umol/L (11-32)
[2022-03-24 07:11] LABS: IRON, SERUM 19 ug/dl (50-175); TOTAL IRON BINDING CAPACITY 258 ug/dl (250-450)
[2022-03-24 07:13] LABS: ALBUMIN 2.2 g/dL (3.4-5.0); BILIRUBIN,DIRECT 0.6 mg/dL (0.0-0.2); BILIRUBIN,TOTAL 1.4 mg/dL (0.2-1.0); CALCIUM, SERUM 7.5 mg/dL (8.5-10.1); CREATININE 0.9 mg/dL (0.6-1.3); MAGNESIUM 2.7 mg/dL (1.8-2.4); PHOSPHORUS 3.6 mg/dL (2.5-4.9); POTASSIUM 4.2 mmol/L (3.5-5.1); TOTAL PROTEIN, SERUM 5.2 g/dL (6.4-8.2)
[2022-03-24 07:20] LABS: FERRITIN 45 ng/mL (8-388)
--- NOTE | 2022-03-24 07:23 | NUR ---
RN CLOSING NOTE PATIENT IN BED, ASLEEP AT THIS TIME, AT 2LPM VIA NC, NO SOB/NO SIGNS OF ACUTE DISTRESS NOTED, NSR IN TELE MONITOR, CONT ON IVF AND SANDOSTATIN ORDERED, CONT ON ANTIBIOTIC, NPO SINCE MIDNIGHT FOR EGD TODAY, ONE BOWEL MOVEMENT STILL TARRY STOOL, BILATERAL RESTRAINS RELEASED AND PATIENT BEHAVING AT THIS TIME, OTHERWISE NO SIGNIFICANT CHANGE IN CONDITION, ALL SAFETY MEASURE MAINTAINED, BED LOCKED AND LOWEST POSITION, SIDE RAILS UP X2, CALL LIGHT W/I REACH, ENDORSED TO KEYUR SKINNER FOR CONTINUITY OF CARE..
--- NOTE | 2022-03-24 07:29 | NUR ---
RN OPENING NOTE PATIENT RECEIVED IN BED,ALERT AND VERBALLY RESPONSIVE, SYRIAC SPEAKING, ABLE TO RESPONDS ALL STIMULI. IN NO ACUTE DISTRESS NOTED. RESPIRATORY EVEN AND UNLABORED ON OXYGEN AT 2Ls VIA NC, NO FACIAL GRIMACING NOTED. JENNIFER MIDLINE AND RIGHT AC PIV NOTED INTACT WITH MEDICATION AND IV FLUIDS RUNNING. ON TELE MONITORING WITH SR HR 92. SKIN IS WARM TO TOUCH, KEEP CLEAN/DRY. KEPT ELEVATED HOB FOR ENSURE AIRWAY AND ASPIRATION PRECAUTION, ALSO LOWEST POSITION OF THE BED, S/R UP X 3, BED ALARM IS ON AT ALL THE TIMES. ALL SAFETY PRECAUTION APPLIED. CALL LIGHT WITHIN REACH. WILL CONTINUE PLAN OF CARE.
[2022-03-24 07:43] LABS: RED BLOOD CELL COUNT(AUTO) 1.97 MIL/uL (4.5-6.0)
[2022-03-24 07:46] LABS: HEMATOCRIT 20 % (39-51)
--- NOTE | 2022-03-24 07:52 | NUR ---
RN NOTED RECEIVED CALL FROM LAB NOTE HEMOGLOBIN=7.1 HEMATOCRIT 2O, NO ACTIVE BLEEDING NOTED, PATIENT ALERT AND RESPONSIVE, WILL CONTINUE PLAN OF CARE.
[2022-03-24] MEDS: PANTOPRAZOLE 40 MG VIAL IV SCH ×2 (09:27→16:25)
--- NOTE | 2022-03-24 10:08 | NUR ---
RN NOTES CALLED SON SHASHANK TO GET A CONSENT, SON GIVE CONSENT. HELD LACTULOSE DUE TO PATIENT NPO DUE TO SCHEDULED SURGERY. NOTED PATIENT WITH ORDER BLOOD TRANSFUSION BUT PATIENT WILL BE GOING TO THE PROCEDURE. WILL CONTINUE PLAN OF CARE.
--- NOTE | 2022-03-24 10:45 | NUR ---
RN NOTES PATIENT IS OUT FOR SURGERY PROCEDURE.
[2022-03-24] MEDS ORDERED: PHYTONADIONE INJ 10 MG/1 ML AMPUL ONE (11:33)
[2022-03-24] MEDS ORDERED: ANESTHESIA TRAY IN PYXIS 1 EA TRAY MC ONE (11:34)
[2022-03-24] MEDS: SUCRALFATE 1 G/10 ML UDC PO SCH ×3 (12:00→23:14)
--- NOTE | 2022-03-24 12:21 | NUR ---
RN NOTES PATIENT BACK FROM EGD WITH BIOPSY, RECEIVED REPORT FROM PACU NURSE, NO SOB NOTED, RESPIRATION EVEN AND UNLABORED. WILL CONTINUE PLAN OF CARE.
--- NOTE | 2022-03-24 13:53 | NUR ---
RN BLOOD TRANSFUSION NOTES HANG BLOOD ORDERED, WITNESS BY ERMIAS VILA, INITIAL V/S 97.8 HR 75 RR 20 % @1LPM 02 BP 111/63, NO BLOOD TRANSFUSION REACTION NOTED. RECHECK BP 15 MINUTES AFTER THE BLOOD TRANSFUSION T 97.7 BP 106/54 RR 19 HR 67 02 SAT 95% @1LPM 02. INFORMED MD THAT PATIENT ON BLOOD TRANSFUSION, AND SANDOSTATIN RUNNING AT THE OTHER LINE JORDAN, ASKED IF WE CAN HOLD SANDOSTATIN SO I CAN HANG THE ZOSYN IV ATB, GOOD HERNANDEZ SAID OK. WILL HOLD SANDOSTATIN AND WILL HANG THE ZOSYN. WILL CONTINUE PLAN OF CARE FOR THE PATIENT.
--- NOTE | 2022-03-24 16:22 | NUR ---
RN NOTES BLOOD TRANSFUSION DONE, VS T 97.4 HR 88 RR 20 BP 111/66 02 SAT 93% @1LPM 02 VIA NC, NO REACTION NOTED. NO SOB NOTED, RESPIRATION EVEN AND UNLABORED, DENIES ANY PAIN, WILL CONTINUE PLAN OF CARE.
--- NOTE | 2022-03-24 16:58 | NUR ---
RN NOTES NOTED PATIENT COOPERATIVE, ALERT AND VERBALLY RESPONSIVE, NOT PULLING OUT IV LINES OR NOT TRYING TO GET UP, D/C RESTRAINT ORDER, WILL CONTINUE PLAN OF CARE.
[2022-03-24] MEDS: SOD FERRIC GLUC 125 MG in IV NS 0.9% 100 ML IV SCH (17:22)
[2022-03-24] MEDS: IV D5W 1,000 ML IV PRN (19:08)
--- NOTE | 2022-03-24 19:47 | NUR ---
RN CLOSING NOTE PATIENT IN BED, AWAKE AND ALERT, AT 1LPM VIA NC, NO SOB/NO SIGNS OF ACUTE DISTRESS NOTED, ON TELE MONITOR WITH READING OF SR, CONT ON D5W @75ML/HR, RESTART SANDOSTATIN ORDERED, JENNIFER MIDLINE AND RIGHT AC NOTED PATENT AND INTACT, FLUSHES WELL. NO EPISODE OF GETTING UP OR REMOVING IV LINES. F/C PATENT AND INTACT DRAINING 600ML CLEAR YELLOW URINE. ALL SAFETY MEASURE MAINTAINED, BED LOCKED AND LOWEST POSITION, SIDE RAILS UP X2, CALL LIGHT W/I REACH, ENDORSED TO NIGHT NURSE FOR JOSUE.
--- NOTE | 2022-03-24 20:08 | NUR ---
DRY CANS BACK TENDER OPENING NOTE PT RECEIVED IN BED, AWAKE, A&O X2, CALM, COOPERATIVE. PT ON 1L NC WITH CURRENT O2SAT OF 96%; NO S/S OF RESP DISTRESS, NO SOB OR COUGH, NON-LABORED AND EQUAL BREATHING. PT ATTACHED TO EXTERNAL MONITOR, SR WITH HR OF 85. STONE INTACT AND PATENT, DRAINING CLEAR AND YELLOW URINE. JENNIFER MIDLINE AND RAC 18G INTACT AND PATENT, FLUSHES EASILY WITH NO RESISTANCE D5W AT 75 ML/HR AND SANDOSTATIN AT 5 ML/HR. BED IN LOWEST POSITION, CALL LIGHT WITHIN REACH, SIDE RAILS UP X3. WILL CONTINUE TO MONITOR THROUGHOUT THE NIGHT.
[2022-03-24] MEDS: TEMAZEPAM 15 MG CAPSULE PO PRN (20:27)
--- NOTE | 2022-03-24 20:28 | NUR ---
RN NOTE PT REQUESTS FOR SLEEPING PILL. PT ADMINISTERED RESTORIL 30 MG. BP 137/74, HR 85. WILL MONITOR FOR EFFECTIVENESS.
[2022-03-24 21:19] LABS: BASOPHILS % (AUTO) 0.1 % (0.0-2.0); HEMATOCRIT 25 % (39-51); HEMOGLOBIN 8.7 g/dL (13.5-17.5); LYMPHOCYTES # (AUTO) 0.4 K/uL (0.8-4.8); LYMPHOCYTES % (AUTO) 6.2 % (20.0-44.0); MEAN CORPUSCULAR HGB CONC 34 g/dl (31.0-36.0); MEAN CORPUSCULAR VOLUME 98 fL (80-96); MONOCYTES # (AUTO) 0.6 K/uL (0.1-1.30); MONOCYTES % (AUTO) 9.5 % (2.0-12.0); NEUTROPHILS % (AUTO) 84.2 % (43.0-81.0); PLATELET COUNT (AUTO) 114 K/uL (150-450); RED BLOOD CELL COUNT(AUTO) 2.59 MIL/uL (4.5-6.0); WHITE BLOOD COUNT (AUTO) 5.9 K/uL (4.3-11.0)
[2022-03-24 21:50] LABS: MAGNESIUM 2.6 mg/dL (1.8-2.4); PHOSPHORUS 3.1 mg/dL (2.5-4.9)
[2022-03-25] VITALS: BP 159/87
[2022-03-25 04:00] VITALS: BP 138/62
[2022-03-25] MEDS: methylPREDNISolone SOD SUCC 40 MG/ML VIAL IV SCH ×3 (04:09→20:41)
[2022-03-25] MEDS: METOCLOPRAMIDE HCL 10 MG/2 ML VIAL IV SCH ×4 (04:09→20:41)
[2022-03-25] MEDS: LACTULOSE 10 G/15 ML UDC (PYXIS) PO SCH ×4 (04:10→20:41)
[2022-03-25] MEDS: PIPERACILLIN /TAZOBACTAM 3.375 G in IV D5W 100 ML IV SCH ×3 (04:11→20:41)
[2022-03-25] MEDS: SUCRALFATE 1 G/10 ML UDC PO SCH (06:12)
--- NOTE | 2022-03-25 07:32 | NUR ---
COAT CHECKER NOTE PATIENT IN BED , RESTING COMFORTABLY AT THIS TIME, ON 2L NC NO SOB NOTED AT THIS TIME, ON TELE MONITOR SR HR 60, RT AC HL AND LT UPPER ARM MID LINE IN PLACE , ON IVF ORDERED, BED IN LOWEST AND LOCKED POSITION CALL LIGHT WITHIN REACH, SAFETY MEASURE PROVIDED , WILL CONT TO MONITOR CLOSELY
--- NOTE | 2022-03-25 07:34 | NUR ---
CONVENTIONAL MORTGAGE UNDERWRITER CLOSING NOTE PT REMAINS IN BED, ASLEEP BUT EASILY AROUSABLE, A&O X2, CALM, COOPERATIVE. PT ON 2L NC WITH O2SAT RANGING FROM 96%-97%; NO S/S OF RESP DISTRESS, NO SOB OR COUGH, NON-LABORED AND EQUAL BREATHING. PT ATTACHED TO EXTERNAL MONITOR, SR. STONE INTACT AND PATENT, DRAINING CLEAR AND DARK YELLOW URINE. JENNIFER MIDLINE AND RAC 18G INTACT AND PATENT, FLUSHES EASILY WITH NO RESISTANCE D5W AT 75 ML/HR AND ZOSYN. ALL DUE MEDS ADMINISTERED DURING THE NIGHT. BED IN LOWEST POSITION, CALL LIGHT WITHIN REACH, SIDE RAILS UP X3. WILL ENDORSE TO DAYSHIFT NURSE TO CONTINUE CARE.
[2022-03-25 07:56] LABS: HEMATOCRIT 26 % (39-51); HEMOGLOBIN 8.8 g/dL (13.5-17.5); LYMPHOCYTES # (AUTO) 0.5 K/uL (0.8-4.8); LYMPHOCYTES % (AUTO) 7.4 % (20.0-44.0); MEAN CORPUSCULAR HGB CONC 34 g/dl (31.0-36.0); MEAN CORPUSCULAR VOLUME 99 fL (80-96); MONOCYTES # (AUTO) 0.7 K/uL (0.1-1.30); MONOCYTES % (AUTO) 9.9 % (2.0-12.0); NEUTROPHILS # (AUTO) 5.8 K/uL (1.8-8.9); NEUTROPHILS % (AUTO) 82.7 % (43.0-81.0); PLATELET COUNT (AUTO) 112 K/uL (150-450)
[2022-03-25 08:00] VITALS: BP 131/66
[2022-03-25] MEDS: PANTOPRAZOLE 40 MG VIAL IV SCH ×2 (08:06→16:06)
[2022-03-25 08:08] LABS: CALCIUM, SERUM 7.7 mg/dL (8.5-10.1); CREATININE 0.9 mg/dL (0.6-1.3); MAGNESIUM 2.6 mg/dL (1.8-2.4); PHOSPHORUS 3.6 mg/dL (2.5-4.9); POTASSIUM 4.1 mmol/L (3.5-5.1)
--- NOTE | 2022-03-25 09:00 | NUR ---
telecommunications specialist note u dr mack at bedside ok to get patient up . having breakfast sitting at edge of bed
[2022-03-25] MEDS: IV D5W 1,000 ML IV PRN (10:50)
[2022-03-25] MEDS: SUCRALFATE 1 G TABLET PO SCH ×2 (11:14→17:22)
[2022-03-25 12:00] VITALS: BP 119/62
--- NOTE | 2022-03-25 12:18 | NUR ---
teletype operator note Patient was put out of his bed and was sitting in the chair, with 2L O2 via nasal cannula.Having lunch on liquid diet by himself without distress.
--- NOTE | 2022-03-25 12:53 | NUR ---
delinquency prevention social worker note Patient was up on a chair, seen by Dr. Wilhelm. Complained hard to swallow. ordered swallow evaluation, aware that bilateral feet pitting edema 1+, would continue IVF.
[2022-03-25] MEDS: SOD FERRIC GLUC 125 MG in IV NS 0.9% 100 ML IV SCH (14:36)
--- NOTE | 2022-03-25 15:29 | NUR ---
telecommunications field engineer note resting comfortably in bed , not in distress, on 2l nc no sob note at this time, call light within reach
[2022-03-25 16:00] VITALS: BP 143/78
--- NOTE | 2022-03-25 18:29 | NUR ---
degreaser operator notes Patient was in bed resting comfortably. Refused dinner at the moment. Encourage intake. No other discomfort reported. Patient continue IVF. SpO2 97% with 2L oxygen. Bed in lowest position. Safety measures implemented and will continue to monitor.
[2022-03-25 20:00] VITALS: BP 128/56
[2022-03-25] MEDS: TEMAZEPAM 15 MG CAPSULE PO PRN (20:50)
[2022-03-26] VITALS: BP 125/55
[2022-03-26] MEDS: SUCRALFATE 1 G TABLET PO SCH ×5 (00:18→23:24)
[2022-03-26] MEDS: LACTULOSE 10 G/15 ML UDC (PYXIS) PO SCH ×4 (03:07→20:30)
[2022-03-26] MEDS: METOCLOPRAMIDE HCL 10 MG/2 ML VIAL IV SCH ×4 (03:07→20:21)
[2022-03-26 04:00] VITALS: BP 136/60
[2022-03-26] MEDS: PIPERACILLIN /TAZOBACTAM 3.375 G in IV D5W 100 ML IV SCH ×3 (05:18→20:23)
[2022-03-26] MEDS: methylPREDNISolone SOD SUCC 40 MG/ML VIAL IV SCH (05:19)
[2022-03-26] MEDS: IV D5W 1,000 ML IV PRN ×2 (05:45→20:41)
--- NOTE | 2022-03-26 06:43 | NUR ---
END OF SHIFT, VS STABLE DURING THE NIGHT, NO S/S OF ANY SOB/ACUTE DISTRESS, NO SIGNIFICANT CHANGE IN CONDITION DURING THE NIGHT, BED IN LOWEST POSITION, CALL LIGHT WITHIN REACH, SIDE RAILS UP X3, WILL ENDORSE CONTINUITY OF CARE TO ONCOMING NURSE.
--- NOTE | 2022-03-26 07:30 | NUR ---
RN Opening Note Patient AOx4 able to express his own concern. Patient was sleeping but easily aroused. Patient shows no signs of discomfort or distress states he is doing "soso". Introduced myself to patient and discussed plan of care, patient verbalized understanding. All safety precautions taken, call light and table within reach, bed at lowest position.
[2022-03-26 08:00] VITALS: BP_SYST 129; BP_SYST 134; BP_DIAS 64; BP_DIAS 67
[2022-03-26] MEDS: PANTOPRAZOLE 40 MG/PACK PACK PO SCH ×2 (09:14→17:13)
[2022-03-26 12:00] VITALS: BP 103/57
[2022-03-26] MEDS: SOD FERRIC GLUC 125 MG in IV NS 0.9% 100 ML IV SCH (15:06)
--- NOTE | 2022-03-26 18:31 | NUR ---
RN Closing Report. Patient AOx4 able to express his own concerns. Patient states he is doing better now that he has been moved to a new room with less noise. Patients is at bedside providing basic needs. All safety precautions taken throughout shift, medications administered as prescribed and care as needed. Call light and table within reach, bed at lowest position.
--- NOTE | 2022-03-26 19:30 | NUR ---
PT AWAKE, RESTING COMFORTABLY IN BED. A/0X4. ABLE TO MAKE NEEDS KNOWN. NOT IN DISTRESS AND NO COMPLAINTS OF PAIN. HAS NC AT 2LPM, NO SOB. FC IN PLACE. JENNIFER ML IN PLACE INFUSING D5W AT 75ML/HR. SAFETY MEASURES IN PLACE. BED LOCKED IN LOWEST POSITION, SIDE RAILS UP X2, HOB SLIGHTLY ELEVATED, BED ALARM ON, CALL LIGHT WITHIN REACH. WILL CONTINUE PLAN OF CARE.
[2022-03-26] MEDS: TEMAZEPAM 15 MG CAPSULE PO PRN (20:22)
[2022-03-27] MEDS: METOCLOPRAMIDE HCL 10 MG/2 ML VIAL IV SCH ×3 (02:24→15:26)
[2022-03-27] MEDS: LACTULOSE 10 G/15 ML UDC (PYXIS) PO SCH ×3 (02:30→15:27)
[2022-03-27] MEDS: PIPERACILLIN /TAZOBACTAM 3.375 G in IV D5W 100 ML IV SCH ×2 (04:04→12:05)
[2022-03-27] MEDS: SUCRALFATE 1 G TABLET PO SCH ×2 (05:17→12:04)
--- NOTE | 2022-03-27 07:00 | NUR ---
RN NOTE RECEIVED PATIENT IN BED RESTING ALERT ORIENTED X3-4 VERBALLY RESPONSIVE,SLOVENIAN SPEAKING ON 2L OXYGEN VIA NASAL CANNULA,O2:94% IV SITE IS ON LEFT UPPER ARM INTACT PATENT ON D5W IV HYDRATION 75CC/HR,STONE CATH IN PLACE URINE DRAINING CLEAR BY GRAVITY,SAFETY MEASURE IMPLEMENT BED IN LOW POSITON AND LOCKED,CALL LIGHT WITHIN REACH,HEAD OF THE BED ELEVATED ,CONTINUE TO MONITOR
--- NOTE | 2022-03-27 07:04 | NUR ---
PT ASLEEP, RESTING COMFORTABLY IN BED. A/0X4. ABLE TO MAKE NEEDS KNOWN, YORUBA SPEAKING, SPEAKS LITTLE [facility]CI[facility]. NOT IN DISTRESS AND NO COMPLAINTS OF PAIN. HAS NC AT 2LPM, NO SOB. FC IN PLACE DRAINIG YELLOW COLORED URINE. JENNIFER ML IN PLACE INFUSING D5W AT 75ML/HR. SAFETY MEASURES MAINTAINED. BED LOCKED IN LOWEST POSITION, SIDE RAILS UP X2, HOB SLIGHTLY ELEVATED, BED ALARM ON, CALL LIGHT WITHIN REACH. WILL ENDORSE TO NEXT NURSE ON DUTY FOR CONTINUITY OF CARE
[2022-03-27] MEDS: PANTOPRAZOLE 40 MG/PACK PACK PO SCH (08:30)
[2022-03-27] MEDS ORDERED: SUCR1TAB31 PO (10:43)
--- NOTE | 2022-03-27 11:28 | NUR ---
RN NOTE PER DR PATTERSON ORDER REMOVED STONE CATH WITH 300CC OUT PUT,CONTINUE TO MONITOR.
--- NOTE | 2022-03-27 12:10 | NUR ---
RN NOTE REMOVED NASAL CANNULA FOR 10MINS PATIENT ON ROOM AIR O2:96%.CONTINUE TO MONITOR.
[2022-03-27] MEDS: SOD FERRIC GLUC 125 MG in IV NS 0.9% 100 ML IV SCH (14:44)
--- NOTE | 2022-03-27 16:30 | NUR ---
RN NOTE PATIENT DISCHARGED HOME IN STABLE CONDITION,REMOVED STONE CATH HE URINATED WITHOUT DIFFICULTY,TWO TIMES,HE SIGNED ALL DISCHARGE PAPERS AND BELONGINGS,HE IS ALERT ORIENTED X4 VERBALLY RESPONSIVE ON ROOM AIR O2:95% REMOVED MIDLINE NO BLEEDING NOTED,HE LEFT HOSPITAL WITH HIS SON BY PRIVATE CAR.VS: BP132/76 HR 89 O2:95% ON ROOM AIR T:98
== END 2022-03-27 16:51 | disposition home or self-care (01) | DRG 241 ==
LOC: ER 19:08 → TELE 23:09 → ICU 03-21 09:45 → TELE1 03-22 18:23 → MEDSG1 03-26 09:28
PROVIDERS: ADMIT Nurse Practitioner Acute Care; ATTEND Internal Medicine
PROC: 05HA33Z Insertion of Infusion Device into Left Brachial Vein, Percutaneous Approach (ICD-10-PCS; 2022-03-22)
PROC: 0DB98ZX Excision of Duodenum, Via Natural or Artificial Opening Endoscopic, Diagnostic (ICD-10-PCS; principal; 2022-03-24)
PROC: 0DB48ZX Excision of Esophagogastric Junction, Via Natural or Artificial Opening Endoscopic, Diagnostic (ICD-10-PCS; 2022-03-24)
PROC: 30233N1 Transfusion of Nonautologous Red Blood Cells into Peripheral Vein, Percutaneous Approach (ICD-10-PCS; 2022-03-24)
PROC: 0DB68ZX Excision of Stomach, Via Natural or Artificial Opening Endoscopic, Diagnostic (ICD-10-PCS; 2022-03-24)
DX: K29.71 Gastritis, unspecified, with bleeding (principal); K72.00 Acute and subacute hepatic failure without coma; I21.4 Non-ST elevation (NSTEMI) myocardial infarction; I85.11 Secondary esophageal varices with bleeding; E87.0 Hyperosmolality and hypernatremia; E87.20 Acidosis, unspecified; K56.7 Ileus, unspecified; I77.4 Celiac artery compression syndrome; N17.9 Acute kidney failure, unspecified; K74.60 Unspecified cirrhosis of liver; M84.48XA Pathological fracture, other site, initial encounter for fracture; K76.6 Portal hypertension; I25.10 Atherosclerotic heart disease of native coronary artery without angina pectoris; R18.8 Other ascites; K44.9 Diaphragmatic hernia without obstruction or gangrene; Z20.822 Contact with and (suspected) exposure to COVID-19; K20.90 Esophagitis, unspecified without bleeding; K31.7 Polyp of stomach and duodenum; K42.9 Umbilical hernia without obstruction or gangrene; I11.0 Hypertensive heart disease with heart failure; I50.9 Heart failure, unspecified; Z87.891 Personal history of nicotine dependence; I70.0 Atherosclerosis of aorta; D53.9 Nutritional anemia, unspecified; F10.11 Alcohol abuse, in remission; F19.10 Other psychoactive substance abuse, uncomplicated; N28.1 Cyst of kidney, acquired; R31.0 Gross hematuria; K76.82 Hepatic encephalopathy; K72.10 Chronic hepatic failure without coma
CPT/HCPCS: 36410; 36415; 71045-TC; 74018; 76770-TC; 76870-TC; 80048-TC; 80053-TC; 80061-TC; 80076-TC; 81001; 82140-TC; 82248-TC; 82272-TC; 82607-TC; 82728-TC; 83540-TC; 83605-TC; 83735-TC; 83880; 84100-TC; 84443-TC; 84484-TC; 85025-TC; 86850-TC; 87040-TC; 87081-TC; 92526; 92611-TC; 93307-TC; 94799-TC; 97112-TC; 97116-TC; 97530-TC; C9113; C9803; G0378; J1650; J2270; J2354; J2543; J2704; J2765; J2916; J2920; J2930; J3430; J3490; J7030; J7040; J7050; J7060; J7070; P9016; Q9963; Q9967

== ENCOUNTER 2022-04-06 17:25 | Emergency (ER) | payer OTHER ==
[~2022-04-06] VITALS: Ht 175.3 cm; Wt 81.6 kg
[~2022-04-06 17:25] MED LIST: FURO20TA4 PO; PANT40TA49 PO; PROP10TA68 PO; SPIR50TA5 PO; SUCR1TAB31 PO
--- NOTE | 2022-04-06 17:53 | NUR ---
SELENE [id number] "From Home abdominal distention-cirrhosis started 8mos ago have had abdomen drained but fluid built up last2d" . To ER bed 14, hooked to monitor, changed to hosp gown, warm blanket provided. patient AAOx$. breathing even and unlabored. awaiting MD ordonez
[2022-04-06 18:00] VITALS: BP 125/69
--- NOTE | 2022-04-06 18:07 | NUR ---
MOVE SHEET SUBMITTED.
--- NOTE | 2022-04-06 18:16 | NUR ---
RAPID COVID SWAB DONE AND SENT TO LAB
[2022-04-06 18:32] LABS: BASOPHILS % (AUTO) 0.4 % (0.0-2.0); EOSINOPHILS % (AUTO) 0.9 % (0.0-6.0); HEMATOCRIT 26 % (39-51); HEMOGLOBIN 8.5 g/dL (13.5-17.5); LYMPHOCYTES # (AUTO) 1.1 K/uL (0.8-4.8); LYMPHOCYTES % (AUTO) 14.6 % (20.0-44.0); MEAN CORPUSCULAR HGB CONC 33 g/dl (31.0-36.0); MEAN CORPUSCULAR VOLUME 101 fL (80-96); MONOCYTES # (AUTO) 0.6 K/uL (0.1-1.30); MONOCYTES % (AUTO) 8.4 % (2.0-12.0); NEUTROPHILS # (AUTO) 5.6 K/uL (1.8-8.9); NEUTROPHILS % (AUTO) 75.7 % (43.0-81.0); PLATELET COUNT (AUTO) 176 K/uL (150-450); RED BLOOD CELL COUNT(AUTO) 2.56 MIL/uL (4.5-6.0); WHITE BLOOD COUNT (AUTO) 7.3 K/uL (4.3-11.0)
--- NOTE | 2022-04-06 18:34 | NUR ---
ULTRASOUND AT BEDSIDE
[2022-04-06 18:48] LABS: CALCIUM, SERUM 7.7 mg/dL (8.5-10.1); CARBON DIOXIDE 30 mmol/L (21-32); CHLORIDE 102 mmol/L (98-107); CREATININE 1.1 mg/dL (0.6-1.3); GLUCOSE 98 mg/dL (74-106); POTASSIUM 3.2 mmol/L (3.5-5.1); SODIUM SERUM 136 mmol/L (136-145); UREA NITROGEN, BLOOD 17 mg/dL (7-18)
--- NOTE | 2022-04-06 18:48 | NUR ---
URINE SAMPLE COLLECTED VIA STRAIGHT CATHETER AND SENT TO LAB
[2022-04-06 18:52] LABS: ALANINE AMINOTRANSFERASE 34 U/L (12-78); ALBUMIN 2.2 g/dL (3.4-5.0); ALKALINE PHOSPHATASE 162 U/L (46-116); ASPARTATE AMINOTRANSFERASE 41 U/L (15-37); BILIRUBIN,DIRECT 0.6 mg/dL (0.0-0.2); BILIRUBIN,TOTAL 1.4 mg/dL (0.2-1.0); LIPASE 262 U/L (73-393)
[2022-04-06 19:54] LABS: BILIRUBIN,URINE 1+ (NEGATIVE); COLOR,URINE YELLOW (YELLOW); LEUKOCYTE ESTERASE ,URINE NEGATIVE (NEGATIVE); NITRITE, URINE NEGATIVE (NEGATIVE); PROTEIN,URINE TRACE mg/dl (NEGATIVE); UGLUCOSE NEGATIVE (NEGATIVE)
[2022-04-06 20:15] LABS: BACTERIA,URINE None seen /HPF (None Seen); SQUAMOUS EPITHELIAL CELL,UR 0-2 /HPF (None Seen); WBC,URINE 0-2 /HPF (0-3)
[2022-04-06 20:16] LABS: URINE AMORPHOUS URATE Few /HPF (None Seen)
--- NOTE | 2022-04-06 20:40 | NUR ---
DR LAW ON THE PHONE WITH DR HELTON AT [facility] [phone]
--- NOTE | 2022-04-06 21:05 | NUR ---
patient accepted to [facility] under MD Hdez transport auth [id number] fax covid to [phone]
--- NOTE | 2022-04-06 21:36 | NUR ---
PLEASE CALL SON ONCE PT IS BEING TRANSFERRED
[2022-04-06] MEDS ORDERED: FUROSEMIDE 40 MG/4 ML VIAL ONE (21:46)
[2022-04-06] MEDS ORDERED: FUROSEMIDE 40 MG/4 ML VIAL IV ONE (22:00)
--- NOTE | 2022-04-06 22:16 | NUR ---
PER KEYUR SALMERON, PT GOT ACCEPTED AT [facility] UNDER CARE OF DR HELTON. GOING TO [phone]. # FOR REPORT: [phone]
--- NOTE | 2022-04-06 22:19 | NUR ---
[facility] ETA: [phone]
--- NOTE | 2022-04-06 23:27 | NUR ---
report given to srinath from [facility] to continue care.
--- NOTE | 2022-04-06 23:54 | NUR ---
PT WAS TRANSFERRED TO [facility] IN STABLE CONDITION
== END 2022-04-06 23:56 | disposition short-term general hospital (02) ==
LOC: ER 17:28
DX: E87.70 Fluid overload, unspecified (principal); K74.60 Unspecified cirrhosis of liver; R18.8 Other ascites; D53.9 Nutritional anemia, unspecified; N50.89 Other specified disorders of the male genital organs; Z79.899 Other long term (current) drug therapy; Z20.822 Contact with and (suspected) exposure to COVID-19; R60.0 Localized edema; K40.20 Bilateral inguinal hernia, without obstruction or gangrene, not specified as recurrent
CPT/HCPCS: 99285; 74176; 93970; 96374; 71045; 87426; 93005; 76870; 85025; 80048; 83690; 80076; 81001; 36415; 84484; 87081; J1940; C9803

== ENCOUNTER 2022-08-16 04:50 | Inpatient (IN) | payer OTHER ==
[~2022-08-16] VITALS: Ht 170.2 cm; Wt 83.6 kg
--- NOTE | 2022-08-16 05:10 | NUR ---
SABRINA 37 FROM HOME WITH CC OF SOB AND ASCITES. PT HAS HX OF LIVER CIRRHOSIS. PARACENTESIS DONE 1 WEEK AGO AT [facility]. -CP, NOT IN CP DISTRESS. PT AAO X 4, BREATHING UNLABORED, 100% ON ROOM AIR. PT ATTACHED TO MONITOR AND PULSE OX. AWAITING MD TA
--- NOTE | 2022-08-16 05:36 | NUR ---
pt taken to CT via nestor
--- NOTE | 2022-08-16 05:40 | NUR ---
IV LINE STARTED AT RFA 20G, BLOOD DRAWN SENT TO LAB
[2022-08-16 05:50] LABS: BASOPHILS % (AUTO) 0.7 % (0.0-2.0); HEMATOCRIT 25 % (39-51); HEMOGLOBIN 7.8 g/dL (13.5-17.5); LYMPHOCYTES # (AUTO) 0.9 K/uL (0.8-4.8); LYMPHOCYTES % (AUTO) 13.4 % (20.0-44.0); MEAN CORPUSCULAR HGB CONC 31 g/dl (31.0-36.0); MEAN CORPUSCULAR VOLUME 89 fL (80-96); MONOCYTES # (AUTO) 0.8 K/uL (0.1-1.30); MONOCYTES % (AUTO) 12.8 % (2.0-12.0); NEUTROPHILS # (AUTO) 4.7 K/uL (1.8-8.9); NEUTROPHILS % (AUTO) 72.1 % (43.0-81.0); PLATELET COUNT (AUTO) 203 K/uL (150-450); RED BLOOD CELL COUNT(AUTO) 2.81 MIL/uL (4.5-6.0); WHITE BLOOD COUNT (AUTO) 6.5 K/uL (4.3-11.0)
[2022-08-16 05:57] LABS: CALCIUM, SERUM 8.3 mg/dL (8.5-10.1); CARBON DIOXIDE 24 mmol/L (21-32); CHLORIDE 106 mmol/L (98-107); GLUCOSE 136 mg/dL (74-106); POTASSIUM 3.7 mmol/L (3.5-5.1); SODIUM SERUM 139 mmol/L (136-145); UREA NITROGEN, BLOOD 20 mg/dL (7-18)
[2022-08-16 06:02] LABS: ALANINE AMINOTRANSFERASE 13 U/L (12-78); ALBUMIN 2.5 g/dL (3.4-5.0); ALKALINE PHOSPHATASE 102 U/L (46-116); ASPARTATE AMINOTRANSFERASE 55 U/L (15-37); BILIRUBIN,DIRECT 0.3 mg/dL (0.0-0.2); LIPASE 185 U/L (73-393); TOTAL PROTEIN, SERUM 6.3 g/dL (6.4-8.2)
--- NOTE | 2022-08-16 06:05 | NUR ---
URINE AND COVID SWAB COLLECTED, SENT TO LAB
--- NOTE | 2022-08-16 06:08 | NUR ---
DR STRONG AT BEDSIDE
[2022-08-16 06:21] LABS: BILIRUBIN,URINE 1+ (NEGATIVE); COLOR,URINE DARK YELLOW (YELLOW); LEUKOCYTE ESTERASE ,URINE NEGATIVE (NEGATIVE); NITRITE, URINE NEGATIVE (NEGATIVE); PH,URINE 5.5 (5.0-8.0); PROTEIN,URINE TRACE mg/dl (NEGATIVE); UGLUCOSE NEGATIVE (NEGATIVE); UROBILINOGEN,URINE 0.2 EU/dL (0.2)
[2022-08-16] MEDS ORDERED: CEFTRIAXONE 1GM BAG (ER ONLY) 1 GM/50 ML PIGGYBACK IV ONE (06:30)
[2022-08-16] MEDS ORDERED: CEFTRIAXONE 1GM BAG (ER ONLY) 50 ML IV ONE (06:31)
--- NOTE | 2022-08-16 06:41 | NUR ---
SPOKE WITH DEMI, PREFERRED IPA PHOTOGRAPHS CURATOR FOR CLINICALS. PT IS OK TO STAY. AUTH NUMBER [id number]
[2022-08-16 06:52] LABS: BACTERIA,URINE Rare /HPF (None Seen)
[2022-08-16 06:59] LABS: SQUAMOUS EPITHELIAL CELL,UR Few /HPF (None Seen)
--- NOTE | 2022-08-16 08:25 | NUR ---
[facility] PAGED
[2022-08-16] MEDS ORDERED: FUROSEMIDE 40 MG/4 ML VIAL IV ONE (08:30)
--- NOTE | 2022-08-16 08:44 | NUR ---
REPORT GIVEN TO HOUSTON VILA
[2022-08-16] MEDS ORDERED: FUROSEMIDE 40 MG/4 ML VIAL ONE (09:11)
--- NOTE | 2022-08-16 09:18 | NUR ---
[facility] PAGED
--- NOTE | 2022-08-16 10:25 | NUR ---
CARD FOLDER ADMITTING NOTES PATIENT ADMITTED TO UNIT VIA GURNEY AT 10:20 ACCOMPANIED BY LOW VISION THERAPIST WITH DIAGNOSIS OF SHORTNESS OF BREATH AND ASCITES. WITH DISTENDED ABDOMEN AND SHALLOW BREATHING. A/O X 4, ABLE TO MAKE NEEDS KNOWN. PATIENT ON ROOM AIR TOLERATING WELL. PATIENT DENIES OF ANY PAIN AND DISCOMFORT AT THIS TIME. PATIENT HOOKED ON TELE MONITOR WITH A CURRENT READING OF SINUS TACH, HR-105. SKIN ASSESSMENT IS DONE, SKIN IS INTACT. IV ACCESS ON LEFT RFA #20G PATENT AND INTACT. ORIENTED TO THE ROOM AND STAFF. PATIENT VERBALIZES UNDERSTANDING. ALL BELONGINGS ARE ACCOUNTED FOR. SAFETY MEASURE IN PLACED; BED LOCKED AND IN THE LOWEST POSITION, SIDE RAILS UP X2, CALL LIGHT AND BEDSIDE TABLE WITHIN PATIENTS REACH. WILL CONTINUE TO MONITOR.
--- NOTE | 2022-08-16 10:30 | NUR ---
MOVED TO INPATIENT ROOM SAFELY PER ACLS PROTOCOL
[2022-08-16] MEDS ORDERED: TAMS-12 PO (10:44)
[2022-08-16] MEDS ORDERED: ZOLP5TAB8 PO (10:44)
[2022-08-16 12:00] VITALS: BP 114/71
[2022-08-16] MEDS ORDERED: ZOLPIDEM TARTRATE 5 MG TABLET PO PRN (12:30)
[2022-08-16] MEDS ORDERED: Z GUARD REMEDY 4 OZ OINT TP PRN (12:30)
[2022-08-16] MEDS ORDERED: MAGNESIUM HYDROXIDE 30 ML UDC PO PRN (12:30)
[2022-08-16] MEDS ORDERED: ONDANSETRON HCL/PF 4 MG/2 ML VIAL IVP PRN (12:30)
[2022-08-16] MEDS ORDERED: MAG HYDROX/AL HYDROX/SIMETH 30 ML UDC PO PRN (12:30)
[2022-08-16] MEDS ORDERED: ACETAMINOPHEN 325 MG TABLET PO PRN (12:30)
--- NOTE | 2022-08-16 12:52 | NUR ---
Per Radiology procedure cannot be performed today, most likely on Thursday08/18/2022. JULITO Riggins was informed. Pt alert and orient. - RN. will get the consent signed today.
[2022-08-16] MEDS ORDERED: LIDOCAINE 100MG/5ML DISP SYR IV STA (13:42)
--- NOTE | 2022-08-16 13:50 | NUR ---
RN NOTES XYLOCAINE INJ 2% PRE-FILLED SYRINGE USED AND ADMINISTERED BY ISABELA INSULATION BLOWER PRIOR PARACENTESIS.
[2022-08-16] MEDS ORDERED: LIDOCAINE 1% INJ 50 ML MDV IJ ONE (14:30)
[2022-08-16] MEDS ORDERED: ALBUMIN 25% 25 GM in PREMIX 1 EA IV SCH (15:00)
--- NOTE | 2022-08-16 15:50 | NUR ---
RN NOTES PATIENT VERBALIZED IF HE CAN HAVE O2 AFTER PARACENTESIS, HOOKED TO O2 VIA NC AT 2LPM, TOLERATED WELL. V/S TAKEN BP-135/70, AK-68, RR-20, T-98.5, O2-96. WILL CONTINUE TO MONITOR Addendum: 08/16/22 at 1827 by Reyna Cardona RN ERROR, PLS DISREGARD
[2022-08-16 16:00] VITALS: BP 135/70
--- NOTE | 2022-08-16 16:05 | NUR ---
RN NOTES PARACENTESIS COMPLETED AT 1400, 9000 ML OF FLUID REMOVED. VITAL SIGNS TAKEN. WILL CONTINUE TO MONITOR.
--- NOTE | 2022-08-16 16:10 | NUR ---
RN NOTES PATIENT VERBALIZED IF HE CAN HAVE O2 AFTER PARACENTESIS, HOOKED TO O2 VIA NC AT 2LPM, TOLERATED WELL. V/S TAKEN BP-135/70, ID-68, RR-20, T-98.5, O2-96. WILL CONTINUE TO MONITOR.
[2022-08-16] MEDS: SPIRONOLACTONE 25 MG TABLET PO SCH (17:14)
[2022-08-16] MEDS: CEFTRIAXONE 1 G in IV D5W 50 ML IV SCH (17:14)
[2022-08-16] MEDS: PROPRANOLOL HCL 10 MG TABLET PO SCH (17:15)
--- NOTE | 2022-08-16 18:51 | NUR ---
LABORATORY MECHANIC HELPER CLOSING NOTES PATIENT RESTING IN BED. A/O X 4, ABLE TO MAKE NEEDS KNOWN. ON O2 VIA NC AT 2LPM, NO SIGN OF ACUTE RESPIRATORY DISTRESS NOTED. DENIES ANY PAIN AND DISCOMFORT AT THIS TIME. ON PHARMACOVIGILANCE SCIENTIST WITH A CURRENT READING OF SR-ST, HR-96-105. IV ACCESS ON RFA #20G, SL, PATENT AND INTACT. NEEDS ATTENDED. SAFETY MEASURE IN PLACED; BED LOCKED AND IN THE LOWEST POSITION, SIDE RAILS UP X2, CALL LIGHT AND TRAY TABLE WITHIN EASY REACH. WILL ENDORSE JOSUE TO AUDIT CLERKS SUPERVISOR.
--- NOTE | 2022-08-16 19:50 | NUR ---
JAVA WEB SERVICES DEVELOPER OPENING NOTE RECEIVED PATIENT RESTING IN BED. PT A/O X 4, ABLE TO MAKE NEEDS KNOWN. ON O2 VIA NC AT 2LPM, NO SIGN OF ACUTE RESPIRATORY DISTRESS NOTED. DENIES ANY PAIN AND DISCOMFORT AT THIS TIME. ON TRAVERTINE INSTALLER WITH A CURRENT READING OF SR-ST, HR-96-105. IV ACCESS ON RFA #20G, SL, PATENT AND INTACT. SAFETY MEASURE IN PLACED: BED LOCKED, AND IN LOWEST POSITION, SIDE RAILS UP X2, CALL LIGHT AND TABLE WITHIN EASY REACH. WILL CONTINUE TO MONITOR PT.
[2022-08-16 20:00] VITALS: BP 103/53
[2022-08-16] MEDS: ZOLPIDEM TARTRATE 5 MG TABLET PO PRN (22:00)
--- NOTE | 2022-08-16 22:00 | NUR ---
BELLHOP CAPTAIN NOTE PT REPORTS INSOMNIA. MEGAN ADMINISTERED TO PT FOR INSOMNIA.
--- NOTE | 2022-08-16 23:15 | NUR ---
CLASSROOM ASSISTANT NOTE PT C/O PAIN TO BILATERAL LEG. TYLENOL ADMINISTERED TO PT FOR PAIN.
[2022-08-17] VITALS (11 sets, daily range): BP systolic 87–125; BP diastolic 49–73
[2022-08-17 06:14] LABS: BASOPHILS % (AUTO) 0.7 % (0.0-2.0); EOSINOPHILS % (AUTO) 2.5 % (0.0-6.0); LYMPHOCYTES # (AUTO) 1.2 K/uL (0.8-4.8); LYMPHOCYTES % (AUTO) 25.7 % (20.0-44.0); MEAN CORPUSCULAR HGB CONC 32 g/dl (31.0-36.0); MEAN CORPUSCULAR VOLUME 87 fL (80-96); MONOCYTES # (AUTO) 0.8 K/uL (0.1-1.30); MONOCYTES % (AUTO) 16.5 % (2.0-12.0); NEUTROPHILS # (AUTO) 2.6 K/uL (1.8-8.9); NEUTROPHILS % (AUTO) 54.6 % (43.0-81.0); PLATELET COUNT (AUTO) 158 K/uL (150-450); RED BLOOD CELL COUNT(AUTO) 2.18 MIL/uL (4.5-6.0); WHITE BLOOD COUNT (AUTO) 4.8 K/uL (4.3-11.0)
[2022-08-17 06:23] LABS: HEMATOCRIT 19 % (39-51); HEMOGLOBIN 6.1 g/dL (13.5-17.5)
[2022-08-17 06:25] LABS: BILIRUBIN,TOTAL 0.6 mg/dL (0.2-1.0); CALCIUM, SERUM 7.9 mg/dL (8.5-10.1); CREATININE 0.7 mg/dL (0.6-1.3); MAGNESIUM 2.3 mg/dL (1.8-2.4); PHOSPHORUS 3.1 mg/dL (2.5-4.9); POTASSIUM 3.4 mmol/L (3.5-5.1); TOTAL PROTEIN, SERUM 4.8 g/dL (6.4-8.2)
--- NOTE | 2022-08-17 06:51 | NUR ---
ANESTHESIA TECH CLOSING NOTE LEFT PATIENT RESTING IN BED. PT A/O X 4, ABLE TO MAKE NEEDS KNOWN. ON O2 VIA NC AT 2LPM, NO SIGN OF ACUTE RESPIRATORY DISTRESS NOTED. DENIES ANY PAIN AND DISCOMFORT AT THIS TIME. ON OBSERVATION NURSE. IV ACCESS ON RFA #20G, SL, PATENT AND INTACT. RECEIVED CALL FROM LAB TO INFORM THAT PT'S HEMOGLOBIN IS 6.1, AND HEMATOCRIT: 19. SAFETY MEASURE IN PLACED: BED LOCKED, AND IN LOWEST POSITION, SIDE RAILS UP X2, CALL LIGHT AND TABLE WITHIN EASY REACH. WILL ENDORSE TO MORNING SHIFT NURSE FOR JOSUE.
[2022-08-17] MEDS ORDERED: PANTOPRAZOLE 40 MG TABLET.DR PO SCH (07:30)
--- NOTE | 2022-08-17 07:30 | NUR ---
PATIENT RECEIVED RESTING COMFORTABLY IN BED WITH EYES CLOSED. NO S/S OR C/O PAIN OR DISTRESS NOTED. SIDE RAILS UP X2, CALL LIGHT LEFT WITHIN REACH. WILL CONTINUE PLAN OF CARE.
[2022-08-17] MEDS ORDERED: POTASSIUM CHLORIDE 20 MEQ TAB.PRT.SR PO ONE (08:00)
[2022-08-17 08:03] LABS: EOSINOPHILS % (MANUAL) 1 % (0-4); LYMPHOCYTES % (MANUAL) 25 % (16-48); MONOCYTES % (MANUAL) 13 % (0-11.0); NEUTROPHILS % (MANUAL) 61 (42-76)
[2022-08-17] MEDS: TAMSULOSIN 0.4 MG CAP.SR.24H PO SCH (08:22)
[2022-08-17] MEDS: SPIRONOLACTONE 25 MG TABLET PO SCH ×2 (08:22→17:00)
[2022-08-17] MEDS: PROPRANOLOL HCL 10 MG TABLET PO SCH ×2 (08:23→17:00)
[2022-08-17 10:19] LABS: HEMOGLOBIN 6.6 g/dL (13.5-17.5)
[2022-08-17] MEDS: PANTOPRAZOLE 40 MG VIAL IV SCH ×2 (12:51→20:45)
[2022-08-17] MEDS: CEFTRIAXONE 1 G in IV D5W 50 ML IV SCH (12:51)
[2022-08-17] MEDS: HYDROCODONE/APAP 10/325MG TABLET PO PRN (14:20)
--- NOTE | 2022-08-17 18:22 | NUR ---
CHANGE OF SHIFT REPORT PT RESTING COMFORTABLY IN BED. NO S/S/ OR C/O PAIN OR DISTRESS NOTED. SIDE RAILS UP X2, CALL LIGHT LEFT WITHIN REACH. PT KEPT CLEAN, DRY AND COMFORTABLE. WILL GIVE REPORT TO COLTON VILA.
--- NOTE | 2022-08-17 19:45 | NUR ---
RN Opening Notes Received pt in bed, awake. AOx4, able to make needs known. On NC 2LPM and tolerating well. No SOB noted. No s/sx of respiratory distress noted. Tele monitor detects SR. IV access in RFA #20G. IV is intact, patent, and flushing well. Safety precautions in place: bed in lowest, locked position, siderails upX2, and brakes on. Table and call light within reach. All needs met at this time.
[2022-08-17 20:01] LABS: HEMOGLOBIN 7.3 g/dL (13.5-17.5)
[2022-08-17] MEDS ORDERED: TRAZODONE 50 MG TABLET PO PRN (21:30)
[2022-08-18] VITALS: BP 126/76
[2022-08-18 04:00] VITALS: BP 109/67
[2022-08-18] MEDS: HYDROCODONE/APAP 10/325MG TABLET PO PRN ×2 (05:28→17:13)
--- NOTE | 2022-08-18 05:28 | NUR ---
RN Notes Administered norco for knee pain per MD order. VS WNL.
[2022-08-18 05:58] LABS: BASOPHILS % (AUTO) 1.1 % (0.0-2.0); HEMATOCRIT 23 % (39-51); HEMOGLOBIN 7.6 g/dL (13.5-17.5); LYMPHOCYTES # (AUTO) 1.2 K/uL (0.8-4.8); LYMPHOCYTES % (AUTO) 30.1 % (20.0-44.0); MEAN CORPUSCULAR HGB CONC 32 g/dl (31.0-36.0); MEAN CORPUSCULAR VOLUME 87 fL (80-96); MONOCYTES # (AUTO) 0.7 K/uL (0.1-1.30); MONOCYTES % (AUTO) 16.6 % (2.0-12.0); NEUTROPHILS % (AUTO) 49.2 % (43.0-81.0); PLATELET COUNT (AUTO) 159 K/uL (150-450); RED BLOOD CELL COUNT(AUTO) 2.69 MIL/uL (4.5-6.0); WHITE BLOOD COUNT (AUTO) 4.1 K/uL (4.3-11.0)
[2022-08-18 06:09] LABS: POTASSIUM 3.6 mmol/L (3.5-5.1)
[2022-08-18 06:28] LABS: CALCIUM, SERUM 7.7 mg/dL (8.5-10.1); CREATININE 0.6 mg/dL (0.6-1.3)
--- NOTE | 2022-08-18 06:49 | NUR ---
RN Closing Notes Pt in bed, asleep, awakens to verbal stimuli. AOx4, able to make needs known. On NC 2LPM and tolerating well. No SOB noted. No s/sx of respiratory distress noted. Tele monitor detects SR. IV access in RFA #20G. IV is intact, patent, and flushing well. All orders carried out. All needs met. Pt kept clean and dry. Safety precautions in place: bed in lowest, locked position, siderails upX2, and brakes on. Table and call light within reach. Will endorse to oncoming shift for JOSUE.
[2022-08-18 07:00] VITALS: BP 108/82
--- NOTE | 2022-08-18 07:54 | NUR ---
RN Opening Notes Pt in bed, asleep, awakens to verbal stimuli. AOx4, able to make needs known. On NC 2LPM and tolerating well. No SOB noted. No s/sx of respiratory distress noted. Tele monitor detects SR. IV access in RFA #20G. IV is intact, patent, and flushing well. Safety precautions in place: bed in lowest, locked position, siderails upX2, and brakes on. Table and call light within reach. continue to monitor.
[2022-08-18] MEDS: SPIRONOLACTONE 25 MG TABLET PO SCH ×3 (08:30→17:00)
[2022-08-18] MEDS: PANTOPRAZOLE 40 MG VIAL IV SCH ×2 (08:30→21:20)
[2022-08-18] MEDS: TAMSULOSIN 0.4 MG CAP.SR.24H PO SCH (08:30)
[2022-08-18] MEDS: PROPRANOLOL HCL 10 MG TABLET PO SCH ×2 (08:31→17:00)
[2022-08-18] MEDS ORDERED: OCTREOTIDE 500 MCG in IV NS 0.9% 99 ML IV PRN (11:00)
[2022-08-18] MEDS: CEFTRIAXONE 1 G in IV D5W 50 ML IV SCH (11:30)
[2022-08-18 12:19] VITALS: BP 97/65
[2022-08-18 16:19] VITALS: BP 109/49
--- NOTE | 2022-08-18 17:02 | NUR ---
rn notes Held Propanolol and Spironolactone, blood pressure is below the normal limits. 100-110/58-60. Charge nurse Alejandra made aware. to monitor.
--- NOTE | 2022-08-18 18:35 | NUR ---
RN Closing Notes Pt awake in bed AOx4, able to make needs known. On RA, tolerating well. No SOB noted. No s/sx of respiratory distress noted. Tele monitor detects SR 79. IV access in RFA #20G. IV is intact, patent, and flushing well with Sandostatin IV running x 5ml/hr to titrate PRN. All orders carried out. All needs met. Pt kept clean and dry. Safety precautions in place: bed in lowest, locked position, siderails upX2, and brakes on. Table and call light within reach. Will endorse to oncoming shift for JOSUE.
--- NOTE | 2022-08-18 19:58 | NUR ---
RN OPENING NOTE PATIENT AWAKE IN BED. A/OX4. NO S/S OF DISTRESS, BREATHING WITHOUT DIFFICULTY ON ROOM AIR. RFA #20 INTACT AND PATENT W/ SANDOSTATIN 5ML/HR TO BE TITRATED UP; HOWEVER, PATIENT IS CURRENTLY REFUSING IV MEDICATION. WILL ENCOURAGE PATIENT TO RESUME AGAIN THROUGHOUT THE SHIFT WITH THE GOAL PATIENT RESUMES MEDICATION. TELE READS SR 96. SAFETY MEASURES IN PLACE: BED LOCKED AND AT LOWEST POSITION, MID-FOWLERS, RAILS UP X2, CALL MILAN WITHIN REACH. WILL CONTINUE TO MONITOR PATIENT.
[2022-08-18 20:00] VITALS: BP 111/71
[2022-08-18] MEDS: ZOLPIDEM TARTRATE 5 MG TABLET PO PRN (21:20)
--- NOTE | 2022-08-18 21:30 | NUR ---
RN NOTE ON-CALL, RUSSEL, NOTIFIED PATIENT IS REFUSING SANDOSTATIN IV. PATIENT EDUCATION GIVEN.
[2022-08-19] VITALS (7 sets, daily range): BP systolic 96–124; BP diastolic 52–74
[2022-08-19 05:56] LABS: EOSINOPHILS % (AUTO) 2.5 % (0.0-6.0); HEMATOCRIT 25 % (39-51); HEMOGLOBIN 7.9 g/dL (13.5-17.5); LYMPHOCYTES # (AUTO) 1.3 K/uL (0.8-4.8); LYMPHOCYTES % (AUTO) 27.5 % (20.0-44.0); MEAN CORPUSCULAR HGB CONC 32 g/dl (31.0-36.0); MEAN CORPUSCULAR VOLUME 87 fL (80-96); MONOCYTES # (AUTO) 0.7 K/uL (0.1-1.30); MONOCYTES % (AUTO) 15.9 % (2.0-12.0); NEUTROPHILS # (AUTO) 2.4 K/uL (1.8-8.9); NEUTROPHILS % (AUTO) 53.1 % (43.0-81.0); PLATELET COUNT (AUTO) 175 K/uL (150-450); RED BLOOD CELL COUNT(AUTO) 2.86 MIL/uL (4.5-6.0); WHITE BLOOD COUNT (AUTO) 4.6 K/uL (4.3-11.0)
[2022-08-19 06:15] LABS: CREATININE 0.7 mg/dL (0.6-1.3); POTASSIUM 4.1 mmol/L (3.5-5.1)
--- NOTE | 2022-08-19 07:04 | NUR ---
RN CLOSING NOTE PATIENT AWAKE IN BED. A/OX4. NO S/S OF DISTRESS, BREATHING WITHOUT DIFFICULTY ON ROOM AIR. RFA #20 INTACT AND PATENT. TELE READS SR 98. SAFETY MEASURES IN PLACE: BED LOCKED AND AT LOWEST POSITION, MID-FOWLERS, RAILS UP X2, CALL MILAN WITHIN REACH. WILL ENDORSE TO NEXT SHIFT FOR JOSUE.
--- NOTE | 2022-08-19 07:56 | NUR ---
RN OPENING NOTE PATIENT AWAKE IN BED RESTING, A/O X 4. NO S/S OF PAIN NOTED AT THIS TIME. ON ROOM AIR, BREATHING EVEN UNLABORED, NO DISTRESS OR SHORTNESS OF BREATH NOTED. IV ACCESS RFA #20G, INTACT, PATENT AND FLUSHING WELL. PATIENT HAVE EXTERNAL EXTRUSION PRESS ADJUSTER WITH CURRENT READING OF SR AND HR OF 99, NO CARDIAC DISTRESS NOTES. FALL AND SAFETY MEASURES IN PLACE, BED ALARM ON, BED IN LOW AND LOCK POSITION, CALL LIGHT AND TABLE WITHIN EASY REACH, SIDE RAILS UP X2. WILL CONTINUE TO MONITOR.
[2022-08-19] MEDS: TAMSULOSIN 0.4 MG CAP.SR.24H PO SCH (09:00)
[2022-08-19] MEDS: PROPRANOLOL HCL 10 MG TABLET PO SCH ×2 (09:00→16:31)
[2022-08-19] MEDS: SPIRONOLACTONE 25 MG TABLET PO SCH ×2 (09:00→16:31)
[2022-08-19] MEDS: PANTOPRAZOLE 40 MG VIAL IV SCH ×2 (09:16→21:07)
--- NOTE | 2022-08-19 14:30 | NUR ---
RN NOTES PATIENT ARRIVED BACK TO UNIT FROM SURGERY. EGD WAS DONE. PT TOLERATED PROCEDURE WELL. VITALS TAKEN, STABLE AND RECORDED. PT IS RESTING IN BED COMFORTABLY. WILL CONTINUE TO MONITOR
[2022-08-19] MEDS: CEFTRIAXONE 1 G in IV D5W 50 ML IV SCH (14:50)
--- NOTE | 2022-08-19 15:04 | NUR ---
RN NOTES PATIENT REFUSED TO HAVE CLEAR LIQUID DIET FOR DINNER. DR. ROWE WAS CONTACTED AT THE OR. PER OR NURSE, OKAY TO GIVE CLEAR LIQUID NOW, AND WHATEVER PATIENT WANTS FOR DINNER. SOFT DIET ORDERED WAS PLACED FOR DINNER, CHARGE NURSE AWARE
--- NOTE | 2022-08-19 19:54 | NUR ---
RN OPENING NOTE PATIENT AWAKE IN BED. A/OX4. NO S/S OF DISTRESS, BREATHING WITHOUT DIFFICULTY ON ROOM AIR. R-HAND #22 SL INTACT AND PATENT. TELE READS SR 75. SAFETY MEASURES IN PLACE: BED LOCKED AND AT LOWEST POSITION, MID-FOWLERS, RAILS UP X2, CALL MILAN WITHIN REACH. WILL CONTINUE TO MONITOR PATIENT.
--- NOTE | 2022-08-19 20:06 | NUR ---
RN CLOSING NOTE PATIENT AWAKE IN BED RESTING, A/O X 4. NO S/S OF PAIN NOTED AT THIS TIME. ON ROOM AIR, BREATHING EVEN UNLABORED, NO DISTRESS OR SHORTNESS OF BREATH NOTED. IV ACCESS R HAND #22G, INTACT, PATENT AND FLUSHING WELL. PATIENT HAVE EXTERNAL INDUSTRIAL ECONOMIST WITH CURRENT READING OF SR AND HR OF 98, NO CARDIAC DISTRESS NOTES. FALL AND SAFETY MEASURES IN PLACE, BED ALARM ON, BED IN LOW AND LOCK POSITION, CALL LIGHT AND TABLE WITHIN EASY REACH, SIDE RAILS UP X2. ALL NEEDS ATTENDED AND ANTICIPATED. WILL ENDORSE TO SPORTS BOOK WRITER NURSE.
[2022-08-19] MEDS: ZOLPIDEM TARTRATE 5 MG TABLET PO PRN (21:07)
[2022-08-20] VITALS: BP 110/55
[2022-08-20 04:00] VITALS: BP 111/66
[2022-08-20 06:05] LABS: BASOPHILS % (AUTO) 0.7 % (0.0-2.0); EOSINOPHILS % (AUTO) 1.5 % (0.0-6.0); HEMATOCRIT 24 % (39-51); HEMOGLOBIN 7.8 g/dL (13.5-17.5); LYMPHOCYTES # (AUTO) 1.1 K/uL (0.8-4.8); LYMPHOCYTES % (AUTO) 22.5 % (20.0-44.0); MEAN CORPUSCULAR HGB CONC 32 g/dl (31.0-36.0); MEAN CORPUSCULAR VOLUME 87 fL (80-96); MONOCYTES # (AUTO) 0.9 K/uL (0.1-1.30); MONOCYTES % (AUTO) 18.1 % (2.0-12.0); NEUTROPHILS # (AUTO) 2.9 K/uL (1.8-8.9); NEUTROPHILS % (AUTO) 57.2 % (43.0-81.0); PLATELET COUNT (AUTO) 186 K/uL (150-450); RED BLOOD CELL COUNT(AUTO) 2.77 MIL/uL (4.5-6.0)
--- NOTE | 2022-08-20 06:46 | NUR ---
RN CLOSING NOTE PATIENT AWAKE IN BED. A/OX4. NO S/S OF DISTRESS, BREATHING WITHOUT DIFFICULTY ON ROOM AIR. R-HAND #22 SL INTACT AND PATENT. TELE READS ST 102. SAFETY MEASURES IN PLACE: BED LOCKED AND AT LOWEST POSITION, MID-FOWLERS, RAILS UP X2, CALL MILAN WITHIN REACH. WILL ENDORSE TO NEXT SHIFT FOR JOSUE.
[2022-08-20 06:52] LABS: ALBUMIN 2.1 g/dL (3.4-5.0); BILIRUBIN,TOTAL 0.7 mg/dL (0.2-1.0); CALCIUM, SERUM 8.2 mg/dL (8.5-10.1); CREATININE 0.8 mg/dL (0.6-1.3); PHOSPHORUS 3.1 mg/dL (2.5-4.9); POTASSIUM 3.7 mmol/L (3.5-5.1); TOTAL PROTEIN, SERUM 5.1 g/dL (6.4-8.2)
[2022-08-20 07:00] VITALS: BP 124/78
--- NOTE | 2022-08-20 07:30 | NUR ---
RN OPENING NOTE RECEIVED PATIENT RESTING IN BED. A/OX4. NO COMPLAINTS MADE. NO S/S OF DISTRESS, BREATHING WITHOUT DIFFICULTY ON ROOM AIR. R-HAND #22 SL INTACT AND PATENT. ON TELE MONITORING, SR 90s. SAFETY MEASURES IN PLACE: BED LOCKED AND AT LOWEST POSITION, LOW-FOWLERS POSITION, SIDE RAILS UP X2, CALL LIGHT WITHIN REACH. WILL CONTINUE TO MONITOR PATIENT.
[2022-08-20] MEDS: SPIRONOLACTONE 25 MG TABLET PO SCH ×2 (08:30→08:42)
[2022-08-20] MEDS: TAMSULOSIN 0.4 MG CAP.SR.24H PO SCH ×2 (08:30→08:42)
[2022-08-20 08:31] VITALS: BP 124/78
[2022-08-20] MEDS: PROPRANOLOL HCL 10 MG TABLET PO SCH (08:31)
[2022-08-20] MEDS: HYDROCODONE/APAP 10/325MG TABLET PO PRN (08:32)
[2022-08-20] MEDS: PANTOPRAZOLE 40 MG VIAL IV SCH (08:32)
--- NOTE | 2022-08-20 10:55 | NUR ---
ARNP NOTES PATIENT AWAKE, ALERT, ORIENTED. AMBULATES WITH CANE. NO SIGNS & SYMPTOMS OF DISTRESS. VERBALIZES NO PAIN. SEEN BY DR. CANO, DISCHARGE ORDER GIVEN. DISCHARGE AND MEDICATION INSTRUCTIONS PROVIDED TO PATIENT. VERBALIZE UNDERSTANDING. ALL BELONGINGS ACCOUNTED FOR. ASSISTED PATIENT TO HOSPITAL LOBBY VIA WHEELCHAIR. WILL BE PICKED UP BY FAMILY MEMBER.
[2022-08-20 15:27] LABS: EOSINOPHILS % (MANUAL) 1 % (0-4); LYMPHOCYTES % (MANUAL) 23 % (16-48); MONOCYTES % (MANUAL) 15 % (0-11.0); NEUTROPHILS % (MANUAL) 61 (42-76)
== END 2022-08-20 10:55 | disposition home health service (06) | DRG 264 ==
LOC: ER 04:55 → TELE 08:22
PROVIDERS: ADMIT Nurse Practitioner Acute Care
PROC: 0W9G3ZX Drainage of Peritoneal Cavity, Percutaneous Approach, Diagnostic (ICD-10-PCS; principal; 2022-08-16)
PROC: 30233N1 Transfusion of Nonautologous Red Blood Cells into Peripheral Vein, Percutaneous Approach (ICD-10-PCS; 2022-08-17)
PROC: 06L34CZ Occlusion of Esophageal Vein with Extraluminal Device, Percutaneous Endoscopic Approach (ICD-10-PCS; 2022-08-19)
DX: K70.31 Alcoholic cirrhosis of liver with ascites (principal); J96.01 Acute respiratory failure with hypoxia; I85.11 Secondary esophageal varices with bleeding; E43 Unspecified severe protein-calorie malnutrition; K65.2 Spontaneous bacterial peritonitis; K76.82 Hepatic encephalopathy; E87.20 Acidosis, unspecified; K76.6 Portal hypertension; E88.09 Other disorders of plasma-protein metabolism, not elsewhere classified; M84.48XA Pathological fracture, other site, initial encounter for fracture; Z20.822 Contact with and (suspected) exposure to COVID-19; K21.9 Gastro-esophageal reflux disease without esophagitis; K31.89 Other diseases of stomach and duodenum; K42.9 Umbilical hernia without obstruction or gangrene; K43.9 Ventral hernia without obstruction or gangrene; K44.9 Diaphragmatic hernia without obstruction or gangrene; I10 Essential (primary) hypertension; Z79.899 Other long term (current) drug therapy; D53.9 Nutritional anemia, unspecified; D62 Acute posthemorrhagic anemia; E87.70 Fluid overload, unspecified; F19.11 Other psychoactive substance abuse, in remission; Y90.9 Presence of alcohol in blood, level not specified; F17.210 Nicotine dependence, cigarettes, uncomplicated
CPT/HCPCS: 36415; 71045-TC; 76942-TC; 80048-TC; 80053-TC; 80076-TC; 81001; 82140-TC; 83605-TC; 83690-TC; 83735-TC; 83880; 84100-TC; 84484-TC; 85025-TC; 85027-TC; 85730-TC; 86850-TC; 87040-TC; 87081-TC; 87086-TC; A4216; A4223; C9113; C9803; G0378; J0696; J1940; J2001; J2354; J2704; J3490; J7030; J7040; J7060; P9016; P9047

== ENCOUNTER 2022-08-30 02:05 | Emergency (ER) | payer OTHER ==
[~2022-08-30] VITALS: Ht 170.2 cm; Wt 86.6 kg
[~2022-08-30 02:05] MED LIST changes: -FURO20TA4 PO; -SUCR1TAB31 PO; +TAMS-12 PO; +ZOLP5TAB8 PO
--- NOTE | 2022-08-30 02:24 | NUR ---
BIBRA39 FROM HOME C/O DISTENDED ABDOMEN Hx: LIVER Cirrhosis. AXO3 AMBULUATORY. C/O PAIN IN THE ABDOMEN AND LOWER EXTREMITIES
--- NOTE | 2022-08-30 03:05 | NUR ---
BLOOD COLLECTED AND SENT TO LAB
[2022-08-30 03:08] LABS: BASOPHILS # (AUTO) 0.1 K/uL (0.0-0.2); BASOPHILS % (AUTO) 0.9 % (0.0-2.0); EOSINOPHILS % (AUTO) 1.6 % (0.0-6.0); HEMATOCRIT 22 % (39-51); HEMOGLOBIN 7.1 g/dL (13.5-17.5); LYMPHOCYTES # (AUTO) 1.1 K/uL (0.8-4.8); LYMPHOCYTES % (AUTO) 19.7 % (20.0-44.0); MEAN CORPUSCULAR HGB CONC 32 g/dl (31.0-36.0); MEAN CORPUSCULAR VOLUME 89 fL (80-96); MONOCYTES # (AUTO) 0.9 K/uL (0.1-1.30); MONOCYTES % (AUTO) 16.4 % (2.0-12.0); NEUTROPHILS # (AUTO) 3.5 K/uL (1.8-8.9); NEUTROPHILS % (AUTO) 61.4 % (43.0-81.0); PLATELET COUNT (AUTO) 218 K/uL (150-450); RED BLOOD CELL COUNT(AUTO) 2.51 MIL/uL (4.5-6.0); WHITE BLOOD COUNT (AUTO) 5.7 K/uL (4.3-11.0)
--- NOTE | 2022-08-30 03:17 | NUR ---
20G IV STARTED ON L UPPER ARM.
[2022-08-30 03:36] LABS: ALANINE AMINOTRANSFERASE 13 U/L (12-78); ALBUMIN 2.4 g/dL (3.4-5.0); ALKALINE PHOSPHATASE 106 U/L (46-116); ASPARTATE AMINOTRANSFERASE 37 U/L (15-37); BILIRUBIN,DIRECT 0.4 mg/dL (0.0-0.2); CALCIUM, SERUM 9.4 mg/dL (8.5-10.1); CARBON DIOXIDE 26 mmol/L (21-32); CHLORIDE 106 mmol/L (98-107); CREATININE 1.1 mg/dL (0.6-1.3); GLUCOSE 100 mg/dL (74-106); LIPASE 119 U/L (73-393); POTASSIUM 3.3 mmol/L (3.5-5.1); SODIUM SERUM 139 mmol/L (136-145); TOTAL PROTEIN, SERUM 6.1 g/dL (6.4-8.2); UREA NITROGEN, BLOOD 20 mg/dL (7-18)
--- NOTE | 2022-08-30 06:06 | NUR ---
RECIEVED CALL FROM [facility] REGARDING PT TRANSFER. THEY WERE TRYING TO GET A MED SURG BED BUT THEY WILL ASK THEIR DOCTOR IF THEY WANT A REPEAT TROPONIN HERE OR IF ITS OKAY TO TRANSFER. AWAITING CALL BACK
--- NOTE | 2022-08-30 06:30 | NUR ---
PT GOING TO [facility] ER TELE HOLD UNDER THE CARE OF DR. SAUCEDO. CALL [phone] FOR REPORT TO CHARGE NURSE.
--- NOTE | 2022-08-30 06:58 | NUR ---
[facility]. ETA 30 MIN
--- NOTE | 2022-08-30 07:05 | NUR ---
REPORT GIVEN TO DEREJE VILA AT [facility] ER
--- NOTE | 2022-08-30 08:15 | NUR ---
Ambulance arrived and picked up patient to [facility]. Handover is given to EMT staff. Patient is alert and conscious and is ambulatory with a walking stick. He is aware of the transfer. Left at 08:10.
[2022-08-30 08:29] VITALS: BP 135/78
== END 2022-08-30 08:36 | disposition short-term general hospital (02) ==
LOC: ER 02:19
DX: K43.9 Ventral hernia without obstruction or gangrene (principal); K70.31 Alcoholic cirrhosis of liver with ascites; D53.9 Nutritional anemia, unspecified; I10 Essential (primary) hypertension; Z20.822 Contact with and (suspected) exposure to COVID-19; Z79.899 Other long term (current) drug therapy
CPT/HCPCS: 99285; 87426; 93005; 85025; 80048; 83690; 80076; 36415; 84484; 85730; 87081; C9803

== ENCOUNTER 2022-10-07 03:26 | Emergency (ER) | payer MEDICAID, MEDICARE, OTHER ==
[~2022-10-07] VITALS: Ht 170.2 cm; Wt 86.6 kg
--- NOTE | 2022-10-07 03:30 | NUR ---
BIBRA 37 FROM HOME ABDOMINAL DISTENTION. WITH ABDOMINAL GIRTH OF 49.5 INCHES.PATIENT IS AOX4. ABLE TO MAKE NEEDS KNOWN. PLACED COMFORTABLY IN BED. VITALS CHECKED.
--- NOTE | 2022-10-07 03:40 | NUR ---
SEEN BY DR ALVARADO AT BEDSIDE
--- NOTE | 2022-10-07 03:52 | NUR ---
FOR URINE COLLECTION. URINAL OFFERED. PATIENT CANNOT GIVE URINE SAMPLE YET
--- NOTE | 2022-10-07 03:53 | NUR ---
[facility]
--- NOTE | 2022-10-07 04:08 | NUR ---
COVID SWAB DONE
--- NOTE | 2022-10-07 04:08 | NUR ---
IV KETURAH G20 INSERTED ON RIGHT AC G20. BLOOD DRAWN AND SENT TO LAB
--- NOTE | 2022-10-07 04:17 | NUR ---
CASUALTY INSURANCE CLAIM ADJUSTER AT BEDSIDE
[2022-10-07 04:18] LABS: HEMOGLOBIN 8.8 g/dL (13.5-17.5); RED BLOOD CELL COUNT(AUTO) 3.02 MIL/uL (4.5-6.0); WHITE BLOOD COUNT (AUTO) 7.8 K/uL (4.3-11.0)
[2022-10-07 04:19] LABS: BASOPHILS % (AUTO) 0.3 % (0.0-2.0); EOSINOPHILS % (AUTO) 0.6 % (0.0-6.0); HEMATOCRIT 28 % (39-51); LYMPHOCYTES % (AUTO) 12.2 % (20.0-44.0); MEAN CORPUSCULAR HGB CONC 31 g/dl (31.0-36.0); MEAN CORPUSCULAR VOLUME 93 fL (80-96); MONOCYTES # (AUTO) 0.9 K/uL (0.1-1.30); MONOCYTES % (AUTO) 11.9 % (2.0-12.0); NEUTROPHILS # (AUTO) 5.9 K/uL (1.8-8.9); PLATELET COUNT (AUTO) 204 K/uL (150-450)
[2022-10-07 04:40] LABS: CALCIUM, SERUM 8.6 mg/dL (8.5-10.1); CREATININE 0.8 mg/dL (0.6-1.3); POTASSIUM 3.5 mmol/L (3.5-5.1)
[2022-10-07 04:52] LABS: ALBUMIN 2.4 g/dL (3.4-5.0); BILIRUBIN,DIRECT 0.4 mg/dL (0.0-0.2); BILIRUBIN,TOTAL 0.9 mg/dL (0.2-1.0); TOTAL PROTEIN, SERUM 6.7 g/dL (6.4-8.2)
--- NOTE | 2022-10-07 05:37 | NUR ---
AUTH FOR TRANSFER [id number]
--- NOTE | 2022-10-07 05:37 | NUR ---
PAGEING DR SAUCEDO AT [facility]
--- NOTE | 2022-10-07 07:22 | NUR ---
REPORT GIVEN TO JULITO VILLALBA
--- NOTE | 2022-10-07 07:45 | NUR ---
X RAY AT BEDSIDE
--- NOTE | 2022-10-07 08:26 | NUR ---
[facility] ROOM 428 NUMBER FOR REPORT [phone]
--- NOTE | 2022-10-07 08:27 | NUR ---
CALLED [facility] AND SET UP S TRANSPORT ETA 899
--- NOTE | 2022-10-07 08:50 | NUR ---
fro transfer gave report to [facility] TO JULITO KAN FOR CXONTINUATION OF CARE
--- NOTE | 2022-10-07 09:29 | NUR ---
report given to ambulance transpo.
[2022-10-07 10:09] VITALS: BP 145/71
== END 2022-10-07 10:11 | disposition short-term general hospital (02) ==
LOC: ER 03:29
DX: K70.31 Alcoholic cirrhosis of liver with ascites (principal); N50.89 Other specified disorders of the male genital organs; I10 Essential (primary) hypertension; Z20.822 Contact with and (suspected) exposure to COVID-19
CPT/HCPCS: 99285; 71045; 87426; 93005; 85025; 80048; 80076; 36415; 85730; 83880; C9803

== ENCOUNTER 2022-12-23 04:37 | Inpatient (IN) | payer OTHER ==
[~2022-12-23] VITALS: Ht 167.6 cm; Wt 79.4 kg
[2022-12-23] MEDS ORDERED: MORPHINE SULFATE INJ 2 MG/ML DISP.SYRIN IV ONE ×2 (05:00→08:30)
--- NOTE | 2022-12-23 05:00 | NUR ---
BIBRA 37 FROM HOME FOR ABD DISTENTION
--- NOTE | 2022-12-23 05:10 | NUR ---
PATIENT REQUESTED TO LEAVE ONE SIDE BED RAIL DOWN
[2022-12-23 05:19] LABS: BASOPHILS % (AUTO) 0.8 % (0.0-2.0); EOSINOPHILS % (AUTO) 4.9 % (0.0-6.0); LYMPHOCYTES % (AUTO) 18.2 % (20.0-44.0); MEAN CORPUSCULAR HGB CONC 32 g/dl (31.0-36.0); MEAN CORPUSCULAR VOLUME 87 fL (80-96); MONOCYTES # (AUTO) 0.9 K/uL (0.1-1.30); MONOCYTES % (AUTO) 16.5 % (2.0-12.0); NEUTROPHILS # (AUTO) 3.4 K/uL (1.8-8.9); NEUTROPHILS % (AUTO) 59.6 % (43.0-81.0); PLATELET COUNT (AUTO) 215 K/uL (150-450); WHITE BLOOD COUNT (AUTO) 5.6 K/uL (4.3-11.0)
[2022-12-23 05:22] LABS: HEMATOCRIT 15 % (39-51); HEMOGLOBIN 4.7 g/dL (13.5-17.5); RED BLOOD CELL COUNT(AUTO) 1.68 MIL/uL (4.5-6.0)
[2022-12-23 05:28] LABS: CALCIUM, SERUM 8.3 mg/dL (8.5-10.1); POTASSIUM 3.7 mmol/L (3.5-5.1)
--- NOTE | 2022-12-23 05:29 | NUR ---
PT TAKEN TO CT W/ TECH
[2022-12-23 05:33] LABS: ALBUMIN 2.3 g/dL (3.4-5.0); BILIRUBIN,DIRECT 0.3 mg/dL (0.0-0.2); BILIRUBIN,TOTAL 0.7 mg/dL (0.2-1.0); TOTAL PROTEIN, SERUM 6.3 g/dL (6.4-8.2)
--- NOTE | 2022-12-23 05:39 | NUR ---
BACK FROM CT
[2022-12-23 05:51] LABS: EOSINOPHILS % (MANUAL) 5 % (0-4); LYMPHOCYTES % (MANUAL) 19 % (16-48); MONOCYTES % (MANUAL) 13 % (0-11.0); NEUTROPHILS % (MANUAL) 63 (42-76)
[2022-12-23 05:54] LABS: BILIRUBIN,URINE 1+ (NEGATIVE); COLOR,URINE DARK YELLOW (YELLOW); LEUKOCYTE ESTERASE ,URINE NEGATIVE (NEGATIVE); NITRITE, URINE NEGATIVE (NEGATIVE); PH,URINE 5.5 (5.0-8.0); PROTEIN,URINE 1+ mg/dl (NEGATIVE); UGLUCOSE NEGATIVE (NEGATIVE)
[2022-12-23] MEDS ORDERED: MORPHINE SULFATE INJ 2 MG/ML DISP.SYRIN ONE (05:55)
[2022-12-23 06:05] LABS: RBC,URINE NONE SEEN /HPF (0-2); WBC,URINE 0-2 /HPF (0-3)
[2022-12-23 06:06] LABS: BACTERIA,URINE Few /HPF (None Seen); CALCIUM OXALATE CRYSTALS,UR Moderate /HPF (None Seen); HYALINE CASTS, URINE Few /LPF (None Seen); MUCUS,URINE Few /LPF (None Seen); SQUAMOUS EPITHELIAL CELL,UR None Seen /HPF (None Seen)
--- NOTE | 2022-12-23 06:20 | NUR ---
BLOOD TRANSFUSION CONSENT FORM SIGNED AND PLACED IN CHART
--- NOTE | 2022-12-23 06:50 | NUR ---
CALL COSMETOLOGY INSTRUCTOR, ART @ [phone] RESULT.
--- NOTE | 2022-12-23 07:10 | NUR ---
PATIENT RECEIVED AFTER REPORT RECEIVED FROM PHAM VILA. PT SITTING COMFORTABLY IN BED. NO S/S OR C/O PAIN OR DISTRESS NOTED. WILL CONTINUE PLAN OF CARE.
--- NOTE | 2022-12-23 07:40 | NUR ---
MD AT BEDSIDE PT STATES HE'S WASTING TIME HERE AND WOULD LIKE TO GO TO [facility] WHERE HE CAN GET HIS BLOOD TRANSFUSION INSTEAD. ALEX STORM PERFORMING NURSING TEACHING.
--- NOTE | 2022-12-23 08:09 | NUR ---
[facility] [phone] WITH AUTH #[id number]
--- NOTE | 2022-12-23 08:45 | NUR ---
RECEIVED FULL REPORT FROM JULITO TYLER FOR ADMISSION FROM ED. WILL WAIT FOR THE PATIENT'S ARRIVAL
--- NOTE | 2022-12-23 09:00 | NUR ---
GOT BED 112-1
--- NOTE | 2022-12-23 09:30 | NUR ---
PT TRANSFERRED AFTER REPORT GIVEN TO KRISTAN VILA. PATIENT TRANSFERRED WITH ALL PERSONAL BELONGINGS. ALL QUESTIONS AND CONCERNS ADDRESSED. TRANSFUSION ONGOING. PATIENT VERBALIZED UNDERSTANDING.
--- NOTE | 2022-12-23 09:30 | NUR ---
ADMISSION NOTES: RECEIVED PATIENT FROM ED VIA GURNEY. PATIENT IS AWAKE ALERT, ORIENTED X 4. NO RESPIRATORY DISTRESS NOTED, BREATHING EVEN AND UNLABORED. ON RA, TOLERATING WELL. PATIENT WAS PLACED ON ADVICE NURSE AND NOTED TO BE ON SR WITH HR OF 86. PATIENT HAS AN ONGOING BLOOD TRANSFUSION BEING ADMINISTERED VIA RIGHT AC, SITE PATENT AND NO S/S INFILTRATION. PATIENT REFUSED TO DISROBE AND REFUSED TO PUT ON HOSPITAL GOWN DESPITE FURTHER EXPLANATION BY THE NURSE. PATIENT REFUSED BODY CHECK TO BE PERFORMED BY THE NURSE. PATIENT STATED THAT HE DOES NOT HAVE ANY OTHER RASH, DENIES ANY SKIN CONDITION. BELONGINGS LIST DONE BY LENORA REY. ALL SAFETY MEASURES IMPLEMENTED. BED LOCKED AND IN LOWEST POSITION WITH CALL LIGHT WITHIN REACH. WILL CONTINUE TO MONITOR PATIENT THROUGHOUT SHIFT. V/S FOLLOWS: TEMP 97.4, HR 86, RESPIRATION RATE 20, 96% RA, BP 107/68.
[2022-12-23 10:00] VITALS: BP 107/68; TEMP 97.5; O2SAT 100
[2022-12-23] MEDS ORDERED: BUME1TAB34 PO (10:04)
[2022-12-23] MEDS ORDERED: FURO-145 PO (10:04)
[2022-12-23] MEDS ORDERED: ONDANSETRON HCL/PF 4 MG/2 ML VIAL IVP PRN (10:30)
[2022-12-23] MEDS ORDERED: ACETAMINOPHEN 325 MG TABLET PO PRN (10:30)
[2022-12-23] MEDS: PANTOPRAZOLE 40 MG VIAL IV SCH (11:36)
--- NOTE | 2022-12-23 11:49 | NUR ---
PATIENT FINISHED HIS BLOOD TRANSFUSION, NO REACTION NOTED THROUGHOUT, TOLERATED IT WELL, V/S FOLLOWS: TEMP 97.4, HR,88, RESPIRATION RATE 20, 96% ON RA AND BP 106/53.
--- NOTE | 2022-12-23 13:24 | NUR ---
per lead technician ,paracentesis will be done tomorrow 10 am,pt. made aware,carie pena made aware.consent on chart.
--- NOTE | 2022-12-23 13:37 | NUR ---
per carie carton forming machine tender need to give one more unit prbc.
--- NOTE | 2022-12-23 13:57 | NUR ---
SON JUDY CALLED WITH THE PHONE NUMBER OF AND UPDATED HIM OF PATIENT'S CONDITION.
[2022-12-23 16:00] VITALS: BP 126/55; TEMP 97.6; O2SAT 95
--- NOTE | 2022-12-23 18:15 | NUR ---
TELE CLOSING NOTES: PATIENT IN BED, ASLEEP BUT EASILY AROUSES BY VOICE. PATIENT IS A/O X 4. NO RESPIRATORY DISTRESS NOTED THROUGHOUT SHIFT. ON SR WITH HR OF 95 PER TELE MONITOR. IV ACCESS INTACT, FLUSHES WELL, NO S/S INFILTRATION NOTED. PATIENT USED URINAL AND EMPTIED 350 ML OF YOHAN COLORED URINE, NO HEMATURIA AND NO SEDIMENTATION NOTED. NO C/O PAIN OR DISCOMFORT NOTED AT THIS TIME. ALL NEEDS MET AND ANTICIPATED. ALL SAFETY MEASURES MAINTAINED. CALL LIGHT WITHIN REACH. BED LOCKED AND IN LOWEST POSITION WITH BED ALARM ON. WILL ENDORSE TO INCOMING NURSE FOR CONTINUITY OF CARE
--- NOTE | 2022-12-23 19:40 | NUR ---
CAR CONSTRUCTION SUPERINTENDENT OPENING NOTES: RECEIVED PATIENT ASLEEP IN BED, AROUSED EASILY. PATIENT IS A/O X 4. NO RESPIRATORY DISTRESS NOTED AT THIS TIME. ON SR WITH HR OF 95 PER TELE MONITOR. IV ACCESS RAC G#20,INTACT, FLUSHES WELL, NO S/S INFILTRATION . NO C/O PAIN OR DISCOMFORT NOTED. ALL SAFETY MEASURES MAINTAINED. BED LOCKED AND IN LOWEST POSITION WITH BED ALARM ON. CALL LIGHT AND TABLE WITHIN REACH. WILL CONTINUE TO MONITOR AND ASSIST.
[2022-12-23 20:00] VITALS: BP 98/47; TEMP 98.2
[2022-12-24] VITALS (9 sets, daily range): BP systolic 98–123; BP diastolic 47–69; TEMP 98–98.8; O2SAT 95
[2022-12-24 06:33] LABS: BASOPHILS % (AUTO) 0.7 % (0.0-2.0); EOSINOPHILS % (AUTO) 5.4 % (0.0-6.0); LYMPHOCYTES # (AUTO) 0.8 K/uL (0.8-4.8); LYMPHOCYTES % (AUTO) 13.9 % (20.0-44.0); MEAN CORPUSCULAR HGB CONC 32 g/dl (31.0-36.0); MEAN CORPUSCULAR VOLUME 87 fL (80-96); MONOCYTES # (AUTO) 0.8 K/uL (0.1-1.30); MONOCYTES % (AUTO) 13.3 % (2.0-12.0); NEUTROPHILS # (AUTO) 3.8 K/uL (1.8-8.9); NEUTROPHILS % (AUTO) 66.7 % (43.0-81.0); PLATELET COUNT (AUTO) 220 K/uL (150-450); RED BLOOD CELL COUNT(AUTO) 2.08 MIL/uL (4.5-6.0); WHITE BLOOD COUNT (AUTO) 5.7 K/uL (4.3-11.0)
[2022-12-24 06:56] LABS: HEMATOCRIT 18 % (39-51); HEMOGLOBIN 5.7 g/dL (13.5-17.5)
[2022-12-24 06:58] LABS: CALCIUM, SERUM 8.2 mg/dL (8.5-10.1); CREATININE 0.7 mg/dL (0.6-1.3); PHOSPHORUS 3.6 mg/dL (2.5-4.9); POTASSIUM 4.1 mmol/L (3.5-5.1)
--- NOTE | 2022-12-24 06:59 | NUR ---
RN NOTES MESH CUTTER CROW INFORMED THAT H AND H IS 5.7 AND 18 RESPECTIVELY. CALLED BLOOD BANK AND ASKED WHAT HAPPENED TO THE 2ND UNIT OF PRBC. BLOOD BANK WILL CHECK AND CALL US BACK. CHARGE NURSE OF DAY SHIFT ALSO MADE AWARE. WILL INFORM THE DAY SHIFT NURSE TO FOLLOW UP.
--- NOTE | 2022-12-24 07:15 | NUR ---
RN OPENING NOTES: RECEIVED PATIENT IN BED, ASLEEP BUT EASILY AROUSES TO VOICE AND SOUND. NO RESPIRATORY DISTRESS NOTED AT THIS TIME, BREATHING EVEN AND UNLABORED, ON RA, TOLERATING WELL. ON ST WITH HR OF 107 PER TELE MONITOR. NO C.O PAIN OR DISCOMFORT AT THIS TIME. HAS IV ACCESS ON RIGHT AC, INTACT, NO S/S INFILTRATION NOTED. ALL SAFETY MEASURES TAKEN, BED LOCKED AND IN LOWEST POSITION WITH BED ALARM ON. CALL LIGHT WITHIN REACH. PATIENT STILL ON HIS REGULAR CLOTHES AND REFUSED TO DISROBE AND PUT ON THE HOSPITAL GOWN DESPITE THE NURSE TELLING HIM TO DO. WILL CONTINUE TO MONITOR PATIENT THROUGHOUT SHIFT.
--- NOTE | 2022-12-24 07:20 | NUR ---
SAMPLE SHOE INSPECTOR AND REWORKER CLOSING NOTES: PATIENT ASLEEP IN BED, AROUSED EASILY. PATIENT IS A/O X 4. NO RESPIRATORY DISTRESS NOTED AT THIS TIME. ON SR WITH HR OF 98 PER TELE MONITOR. IV ACCESS RAC G#20,INTACT, FLUSHES WELL, NO S/S INFILTRATION . NO C/O PAIN OR DISCOMFORT NOTED. ALL SAFETY MEASURES MAINTAINED. BED LOCKED AND IN LOWEST POSITION WITH BED ALARM ON. CALL LIGHT AND TABLE WITHIN REACH. WILL ENDORSE TO AM SHIFT FOR JOSUE
[2022-12-24] MEDS: PANTOPRAZOLE 40 MG VIAL IV SCH (08:54)
--- NOTE | 2022-12-24 10:37 | NUR ---
PER PREVIOUS ORDER, PATIENT WAS STARTED ON A BLOOD TRANSFUSION. VERIFIED WITH ANOTHER RN, YOUSIF Oneill/Payton FOLLOWS: TEMP 98.6, HR, 96, RESPIRATION RATE 20, BP 109/64, OXYGEN SATURATION OF 98% ON RA. PATIENT PREVIOUSLY SIGNED CONSENT FOR BLOOD TRANSFUSION. WILL CONTINUE TO MONITOR PATIENT.
--- NOTE | 2022-12-24 10:50 | NUR ---
PATIENT HAS NO IMMEDIATE REACTIONS 15 MINUTES INTO THE BLOOD TRANSFUSION. PATIENT WITH NO C/O PAIN OR DISCOMFORT, NO RASH AND NO SOB. V/S FOLLOWS: TEMP 98.4, HR 98, RESPIRATION RATE 20, BP 110/57, ON RA WITH OXYGEN SATURATION OF 98%. WILL CONTINUE TO MONITOR PATIENT
--- NOTE | 2022-12-24 11:30 | NUR ---
SPOKE WITH RADIOLOGY DEPT AND INQUIRED TO WHEN IS THE PROCEDURE FOR THE PATINE AND SAID THAT THEY'RE JUST WAITING FOR THE RADIOLOGIST FROM [place]. PATIENT INFORMED AND APOLOGIZED FOR THE DELAY. PATIENT IS VERY ANXIOUS TO HAVE THE PROCEDURE DONE. PATIENT STILL HAS ONGOING BLOOD TRANSFUSION WITH NO REACTION NOTED.
[2022-12-24 12:11] LABS: EOSINOPHILS % (MANUAL) 5 % (0-4); LYMPHOCYTES % (MANUAL) 14 % (16-48); MONOCYTES % (MANUAL) 12 % (0-11.0); NEUTROPHILS % (MANUAL) 69 (42-76)
--- NOTE | 2022-12-24 12:50 | NUR ---
PATIENT HAD ULTRASOUND GUIDED PARACENTESIS DONE AT BEDSIDE PERFORMED BY DR. WATSON ON RIGHT LOWER QUADRANT, ACCOMPANIED BY ELMER. PATIENT TOLERATED PROCEDURE WELL.
--- NOTE | 2022-12-24 13:01 | NUR ---
PATIENT FINISHED HIS BLOOD TRANSFUSION, TOLERATED WELL, NO REACTION NOTED. V/S FOLLOWS, TEMP 98.8, HR 91, RR, 20, BP 123/67 97 % RA.
--- NOTE | 2022-12-24 13:58 | NUR ---
PATIENT FINISHED THE PARACENTESIS AND ABLE TO TAKE OUT 10 LITERS OF ABDOMINAL FLUID, CLEAR, LIGHT YELLOW IN COLOR WERE NOTED ON THE BOTTLES. PATIENT TOLERATED WELL AND WAS GIVEN ALBUMIN ORDERED BY .
[2022-12-24] MEDS ORDERED: ALBUMIN 25% 12.5 GM/50 ML BOTTLE IV ONE ×2 (14:00)
[2022-12-24] MEDS ORDERED: ALBUMIN 25% 25 GM in PREMIX 1 EA IV ONE (14:00)
--- NOTE | 2022-12-24 14:42 | NUR ---
patient refused third blood transfusion and wants to go home. per norberto need to sign AMA.
--- NOTE | 2022-12-24 14:43 | NUR ---
PT. SIGNED AMA DESPITE EXPLAINING RISK INCLUDING .
--- NOTE | 2022-12-24 14:58 | NUR ---
PER PATIENT HIS SON WILL PICK HIM UP.
--- NOTE | 2022-12-24 14:58 | NUR ---
PER PATIENT HE KNOWS WHAT TO DO ,HE HAD THIS CONDITION FOR MORE THAN A YEAR.EXPLAINED AND INSTRUCTED TO COME BACK TO ER IF SHORTNESS OF BREATHING AND BLEEDING OCCUR.
== END 2022-12-24 15:03 | disposition left against medical advice (07) | DRG 280 ==
LOC: ER 04:38 → MEDSG1 09:12 → TELE1 10:31 → MEDSG1 12-24 08:31
PROVIDERS: ADMIT Nurse Practitioner Acute Care; ATTEND Nurse Practitioner Acute Care
PROC: 30233N1 Transfusion of Nonautologous Red Blood Cells into Peripheral Vein, Percutaneous Approach (ICD-10-PCS; 2022-12-23)
PROC: 0W9G3ZZ Drainage of Peritoneal Cavity, Percutaneous Approach (ICD-10-PCS; principal; 2022-12-24)
DX: K70.31 Alcoholic cirrhosis of liver with ascites (principal); K76.6 Portal hypertension; D63.8 Anemia in other chronic diseases classified elsewhere; D69.59 Other secondary thrombocytopenia; K42.9 Umbilical hernia without obstruction or gangrene; I10 Essential (primary) hypertension; Z79.899 Other long term (current) drug therapy; R16.1 Splenomegaly, not elsewhere classified; F10.21 Alcohol dependence, in remission
CPT/HCPCS: 36415; 71045-TC; 76942-TC; 80048-TC; 80061-TC; 80076-TC; 81001; 83735-TC; 84100-TC; 85025-TC; 85730-TC; 86850-TC; A4216; C9113; G0378; J2270; J7050; P9016; P9047